=== PATIENT | female | born 1990 | race Caucasian/White ===

== ENCOUNTER 2019-07-10 19:43 | Emergency (ER) | payer OTHER ==
[2019-07-10 20:08] LABS: BILIRUBIN,URINE NEGATIVE (NEGATIVE); GLUCOSE, URINE (UA) NEGATIVE (NEGATIVE); KETONES,URINE (UA) NEGATIVE (NEGATIVE); LEUKOCYTE ESTERASE, URINE NEGATIVE (NEGATIVE); NITRITE,URINE NEGATIVE (NEGATIVE); OCCULT BLOOD,URINE NEGATIVE (NEGATIVE); PROTEIN,URINE NEGATIVE (NEGATIVE); UROBILINOGEN,URINE 0.2 (NORMAL) E.U./dL (NORMAL)
[2019-07-10 20:11] LABS: CLARITY,URINE CLEAR (CLEAR); HCG UR QUAL NEGATIVE
--- NOTE | 2019-07-10 20:34 | ED Physician Documentation ---
PD HPI NVD - Stated complaint Stated Complaint: DIARRHEA/NAUSEA/ITCHING - Chief complaint Chief Complaint: Abd Pain - History obtained from History obtained from: Patient - History of Present Illness Timing - onset: How many days ago (1-2) Timing - duration: Days (2) Timing - details: Gradual onset Associated symptoms: Abdominal pain (intermittent cramping). No: Fever, Chest pain Contributing factors: Other (she had helped a neighbor who had a dirty house. Patient and a few others were in a "cleaning libertarian" and patient says there was animal feces and she thought some human feces (from couple of kids about 3 years old with messy diapers that had stained outside of their diapers) on carpet and floors in places. Patient had gloves on while cleaning but says she had tendency to wipe back of hand on face or hair. Then got feeling N/V the following day. Not feeling well. Is concerned about bacterial cause of symptoms. She is not aware of others from the group being sick.). No: Sick contact, Bad food, Travel Similar symptoms before: Has not had sx before (has IBS but is usually contstipated with cramps with that. Has Zofran at home due to her IBS and was not having improvement from that med.) Recently seen: Not recently seen Review of Systems Constitutional: reports: Chills, Myalgias, Fatigue. denies: Fever Nose: denies: Rhinorrhea / runny nose, Congestion Throat: denies: Sore throat Cardiac: denies: Chest pain / pressure Respiratory: denies: Dyspnea, Cough GI: reports: Nausea, Vomiting, Diarrhea. denies: Abdominal Swelling, Hematemesis, Bloody / black stool : denies: Dysuria, Frequency Neurologic: denies: Near syncope, Syncope, Altered mental status PD PAST MEDICAL HISTORY - Past Medical History Cardiovascular: None Respiratory: None Neuro: None Endocrine/Autoimmune: None GI: Other (IBS with nausea and constipation and cramps at times. ) - Present Medications Home Medications: Ambulatory Orders Medication Instructions Recorded Confirmed Famotidine 20 mg PO DAILY #10 tablet 07/10/19 Prochlorperazine [Compazine] 5 mg PO Q6H PRN #10 tablet 07/10/19 Sulfamethox/Trimeth 800/160 1 each PO BID #6 tablet 07/10/19 [Bactrim Ds 800/160] - Allergies Allergies/Adverse Reactions: Allergies Allergy/AdvReac Type Severity Reaction Status Date / Time No Known Drug Allergies Allergy Verified 07/10/19 19:50 PD ED PE NORMAL - Vitals Vital signs reviewed: Yes - General General: Alert and oriented X 3, No acute distress, Well developed/nourished - HEENT HEENT: Moist mucous membranes, Pharynx benign - Neck Neck: Supple, no meningeal sign, No adenopathy - Cardiac Cardiac: RRR, No murmur - Respiratory Respiratory: Clear bilaterally - Abdomen Abdomen: Normal bowel sounds, Soft, Non distended, No organomegaly, Other (mild tender epigastric without guarding. Lower abd not tenders. ) - Derm Derm: Normal color, Warm and dry Results - Vitals Vitals: Vital Signs - 24 hr 07/10/19 07/10/19 19:47 21:45 Temperature 37 C Heart Rate 89 61 Respiratory 16 18 Rate Blood Pressure 138/99 H 121/96 H O2 Saturation 98 100 Oxygen O2 Source Room air - Labs Labs: Laboratory Tests 07/10/19 07/10/19 07/10/19 20:04 21:12 21:12 WBC 9.9 RBC 5.09 Hgb 15.3 Hct 44.9 MCV 88.2 MCH 30.1 MCHC 34.1 RDW 12.9 Plt Count 222 MPV 10.2 Neut # (Auto) 5.6 Lymph # (Auto) 3.5 [place] # (Auto) 0.6 Eos # (Auto) 0.1 Baso # (Auto) 0.0 Absolute Nucleated RBC 0.00 Nucleated RBC % 0.0 Sodium 142 Potassium 3.9 Chloride 103 Carbon Dioxide 28 Anion Gap 11.0 BUN 16 Creatinine 1.1 H Estimated GFR (MDRD) 60 L Glucose 93 Calcium 9.2 Total Bilirubin 0.6 AST 15 ALT 16 Alkaline Phosphatase 61 Total Protein 7.4 Albumin 4.7 Globulin 2.7 Albumin/Globulin Ratio 1.7 Lipase 44 Urine Color YELLOW Urine Clarity CLEAR Urine pH 6.0 Ur Specific [place] 1.020 Urine Protein NEGATIVE Urine Glucose (UA) NEGATIVE Urine Ketones NEGATIVE Urine Occult Blood NEGATIVE Urine Nitrite NEGATIVE Urine Bilirubin NEGATIVE Urine Urobilinogen 0.2 (NORMAL) Ur Leukocyte Esterase NEGATIVE Ur Microscopic Review NOT INDICATED Urine Culture Comments NOT INDICATED Urine HCG, Qual NEGATIVE PD MEDICAL DECISION MAKING - ED course Complexity details: re-evaluated patient (feeling better with IV fluids and meds. ), considered differential (seems likely to be viral GE but she is concerned that was exposed to feces (wore gloves while cleaning but she believes she had wiped back of hand on face/mouth couple of times). Consider possible bacterial GE. No respiratory symptoms. ), d/w patient Departure - Departure Disposition: 01 Home, Self Care Clinical Impression: Nausea vomiting and diarrhea, Gastroenteritis Condition: Stable Record reviewed to determine appropriate education?: Yes Instructions: ED Diet Vomiting Diarrhea Follow-Up: MICHELLE HERNÁNDEZ MD [Primary Care Provider] - Prescriptions: Famotidine 20 mg PO DAILY #10 tablet Prochlorperazine [Compazine] 5 mg PO Q6H PRN #10 tablet PRN Reason: Nausea / Vomiting Sulfamethox/Trimeth 800/160 [Bactrim Ds 800/160] 1 each PO BID #6 tablet Comments: Use Compazine if needed for nausea every 6 hours as needed. Famotidine acid reducing medicine daily for 1 to 1-1/2 weeks. Tylenol or ibuprofen as needed for pains. Given the possibility of some bacterial contamination, we can give Bactrim antibiotic twice daily for 3 days. Recheck if not improved well over the next couple of days and return sooner if worsening. Forms: Activity restrictions Discharge Date/Time: 07/10/19 22:45
[2019-07-10] MEDS ORDERED: SULFAMETH/TRIMETH DS 800/160 MG TABLET PO STA (20:56)
[2019-07-10] MEDS ORDERED: ONDANSETRON ODT 4 MG TABLET TL STA (20:56)
[2019-07-10] MEDS ORDERED: FAMOTIDINE 20 MG TABLET PO STA (20:56)
[2019-07-10] MEDS ORDERED: ACETAMINOPHEN 325 MG TABLET PO STA (20:56)
[2019-07-10 21:17] LABS: BASOPHILS % (AUTO) 0.4 %; EOSINOPHILS # (AUTO) 0.1 10^3/uL (0.0-0.7); EOSINOPHILS % (AUTO) 1.4 %; HGB - HEMOGLOBIN 15.3 g/dL (12.0-16.0); LYMPHOCYTES # (AUTO) 3.5 10^3/uL (1.5-3.5); LYMPHOCYTES % (AUTO) 35.4 %; MEAN CORPUSCULAR HEMOGLOBIN 30.1 pg (27.0-31.0); MEAN CORPUSCULAR HGB CONC 34.1 g/dL (32.0-36.0); MEAN CORPUSCULAR VOLUME 88.2 fL (81.0-99.0); MEAN PLATELET VOLUME 10.2 fL (7.9-10.8); MONOCYTES # (AUTO) 0.6 10^3/uL (0.0-1.0); MONOCYTES % (AUTO) 6.3 %; NEUTROPHILS # (AUTO) 5.6 10^3/uL (1.5-6.6); NEUTROPHILS % (AUTO) 56.2 %; PLT - PLATELET COUNT 222 10^3/uL (130-450); RED BLOOD COUNT 5.09 10^6/uL (4.20-5.40); RED CELL DISTRIBUTION WIDTH 12.9 % (12.0-15.0); WHITE BLOOD COUNT 9.9 x10^3/uL (4.8-10.8)
[2019-07-10 21:30] LABS: ALBUMIN 4.7 g/dL (3.2-5.5); ALBUMIN/GLOBULIN RATIO 1.7 (1.0-2.2); BILIRUBIN,TOTAL 0.6 mg/dL (0.2-1.0); CALCIUM 9.2 mg/dL (8.5-10.3); CREATININE 1.1 mg/dL (0.4-1.0); TOTAL PROTEIN 7.4 g/dL (6.7-8.2)
[2019-07-10 21:46] VITALS: BP 121/96
[2019-07-10] MEDS ORDERED: PROCHLORPERAZINE 5 MG TABLET PO STA (22:32)
[2019-07-10] MEDS ORDERED: HYDROcod/ACET 5/325 Prepack 4 PO STA (22:32)
[2019-07-10] MEDS ORDERED: ONDANSETRON ODT 4 MG Prepack 2 TL PRN (22:33)
== END 2019-07-10 22:45 | disposition home or self-care (01) ==
LOC: ED 19:43
DX: K52.9 Noninfective gastroenteritis and colitis, unspecified (principal)
CPT/HCPCS: 36415; 80053; 81003; 81025; 83690; 85025; 99283; 99284; A9270; Q0162; 81001; 87086

== ENCOUNTER 2019-07-30 23:23 | Emergency (ER) | payer OTHER ==
--- NOTE | 2019-07-31 01:01 | ED Physician Documentation ---
PD HPI HEADACHE - Stated complaint Stated Complaint: MIGRAINE - Chief complaint Chief Complaint: Neuro - History obtained from History obtained from: Patient - History of Present Illness Timing - onset: How many days ago (3) Timing - details: Gradual onset, Waxing and waning Pain level now: 8 Worst headache ever?: No: Worst headache ever? Location: Global Quality: Throbbing Associated symptoms: Nausea. No: Fever, Stiff neck, Vomiting, Weakness, Numb ness, Vision changes Improved by: Dark room Worsened by: Light Similar symptoms before: Diagnosis (migraine) Recently seen: Not recently seen - Additional information Additional information: c/o "bad migraine" (per patient) x 3 days. (+) photophobia. nausea but no vomiting. patient has a neurologist in [place] and she is scheduled to have LP next month for possible NPH Review of Systems Constitutional: denies: Fever Eyes: reports: Photophobia. denies: Loss of vision, Decreased vision Musculoskeletal: denies: Neck pain Neurologic: reports: Headache. denies: Generalized weakness, Focal weakness, Numbness PD PAST MEDICAL HISTORY - Past Medical History Past Medical History: Yes Cardiovascular: None Respiratory: None Neuro: Headaches, Migraines Endocrine/Autoimmune: None GI: Other Psych: Anxiety Other Past Medical History: IBS - Past Surgical History Past Surgical History: Yes General: Cholecystectomy, Appendectomy, Colonoscopy Ortho: Arthroscopic surgery, Other HEENT: Tonsil/Adenoidectomy - Present Medications Home Medications: Ambulatory Orders Medication Instructions Recorded Confirmed Alprazolam [Xanax] 0.5 mg PO DAILY PRN 07/31/19 07/31/19 Dextroamphetamine/Amphetamine 10 mg PO 07/31/19 [Adderall 10 mg Tablet] Engality IM 07/31/19 Leuprolide [Lupron] IM 07/31/19 Ondansetron Odt [Zofran] 4 mg TL Q6H PRN #10 tablet 07/31/19 Oxycodone HCl/Acetaminophen 1 - 2 each PO Q6H PRN #14 tablet 07/31/19 [Percocet 5-325 mg Tablet] - Allergies Allergies/Adverse Reactions: Allergies Allergy/AdvReac Type Severity Reaction Status Date / Time No Known Drug Allergies Allergy Verified 07/30/19 23:41 - Social History Does the pt smoke?: No Smoking Status: Never smoker Does the pt drink ETOH?: Yes Does the pt have substance abuse?: No - Immunizations Immunizations are current?: Yes - POLST Patient has POLST: No PD ED PE NORMAL - Vitals Vital signs reviewed: Yes - General General: Alert and oriented X 3, No acute distress, Well developed/nourished - HEENT HEENT: PERRL, EOMI - Neck Neck: Supple, no meningeal sign - Cardiac Cardiac: RRR, No murmur - Respiratory Respiratory: No respiratory distress, Clear bilaterally - Neuro Neuro: Alert and oriented X 3, 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 She seems to recall she had phenergan, benadryl, and "some pain medication"; plan was to give phenergan, benadryl, and toradol and she was agreeable to this, but on further discussion, she describes having received a medication on two occasions (once for headache and another time for GI symptoms) with adverse side effect that sounds like dystonic reaction by her description. Based on this, I decided to not give her phenergan or benadryl. Further discussion of options and plan is zofran and dilaudid. This resulted in resolution of her symptoms Departure - Departure Disposition: 01 Home, Self Care Clinical Impression: Migraine Qualifiers: Migraine type: unspecified Status migrainosus presence: without status migrainosus Intractability: not intractable Qualified Code(s): G43.909 - Migraine, unspecified, not intractable, without status migrainosus Condition: Good Instructions: ED Headache Migraine Follow-Up: MICHELLE HERNÁNDEZ MD [Primary Care Provider] - Prescriptions: Ondansetron Odt [Zofran] 4 mg TL Q6H PRN #10 tablet PRN Reason: Nausea / Vomiting Oxycodone HCl/Acetaminophen [Percocet 5-325 mg Tablet] 1 - 2 each PO Q6H PRN #14 tablet PRN Reason: pain Discharge Date/Time: 07/31/19 02:10
[2019-07-31] MEDS ORDERED: ONDANSETRON ODT 4 MG TABLET TL STA (01:20)
[2019-07-31] MEDS ORDERED: HYDROmorphone 1 MG/ML CARPUJECT IM STA (01:20)
[2019-07-31 01:52] VITALS: BP 125/71
== END 2019-07-31 02:10 | disposition home or self-care (01) ==
LOC: ED 23:23
DX: G43.909 Migraine, unspecified, not intractable, without status migrainosus (principal)
CPT/HCPCS: 96372; 99283; 99284; J1170; Q0162

== ENCOUNTER 2019-11-24 12:50 | Outpatient (CLI) | payer OTHER ==
[2019-11-24 13:32] LABS: BASOPHILS % (AUTO) 0.5 %; EOSINOPHILS # (AUTO) 0.3 10^3/uL (0.0-0.7); HGB - HEMOGLOBIN 14.5 g/dL (12.0-16.0); LYMPHOCYTES % (AUTO) 34.9 %; MEAN CORPUSCULAR HEMOGLOBIN 30.9 pg (27.0-31.0); MEAN CORPUSCULAR HGB CONC 34.2 g/dL (32.0-36.0); MEAN CORPUSCULAR VOLUME 90.2 fL (81.0-99.0); MEAN PLATELET VOLUME 9.9 fL (7.9-10.8); MONOCYTES # (AUTO) 0.6 10^3/uL (0.0-1.0); MONOCYTES % (AUTO) 7.2 %; NEUTROPHILS # (AUTO) 4.5 10^3/uL (1.5-6.6); NEUTROPHILS % (AUTO) 52.9 %; PLT - PLATELET COUNT 209 10^3/uL (130-450); RED CELL DISTRIBUTION WIDTH 12.5 % (12.0-15.0); WHITE BLOOD COUNT 8.5 x10^3/uL (4.8-10.8)
[2019-11-24 13:35] LABS: HCG UR QUAL NEGATIVE
== END 2019-11-24 12:51 | disposition home or self-care (01) ==
LOC: LAB 12:50
PROVIDERS: ATTEND Obstetrics & Gynecology
DX: R10.2 Pelvic and perineal pain (principal); G89.29 Other chronic pain
CPT/HCPCS: 36415; 81025; 85025; 86850; 86900; 86901

== ENCOUNTER 2019-11-26 06:30 | Inpatient (IN) | payer OTHER ==
[~2019-11-26 06:30] MED LIST: CEFAZOLIN SODIUM IN 0.9 % NACL 2 GM/100 ML BAG IV ONE
[2019-11-26 06:47] LABS: HCG UR QUAL NEGATIVE
[2019-11-26] MEDS ORDERED: LACTATED RINGERS 1,000 ML IV ONE ×2 (07:16→11:35)
[2019-11-26] MEDS ORDERED: BUPIVACAINE 0.25% PF 30 ML VIAL ONE (07:17)
[2019-11-26] MEDS ORDERED: VASOPRESSIN 20 UNIT/ML VIAL ONE (07:18)
[2019-11-26] MEDS ORDERED: SCOPOLAMINE PATCH TOP ONE (07:19)
[2019-11-26] MEDS ORDERED: SEVOFLURANE 250 ML LIQUID INH ONE (07:44)
[2019-11-26] MEDS ORDERED: HYDROmorphone 1 MG/ML CARPUJECT IVP ONE (08:11)
[2019-11-26] MEDS ORDERED: ONDANSETRON 4 MG/2 ML VIAL IVP ONE (08:11)
[2019-11-26] MEDS ORDERED: PROPOFOL 200 MG/20 ML VIAL IVP ONE (08:11)
[2019-11-26] MEDS ORDERED: LIDOCAINE-MPF 2% 5 ML VIAL IM ONE (08:11)
[2019-11-26] MEDS ORDERED: ROCURONIUM 50 MG/5 ML VIAL IVP ONE (08:11)
[2019-11-26] MEDS ORDERED: DEXAMETHASONE 4 MG/ML VIAL IVP ONE (08:11)
[2019-11-26] MEDS ORDERED: fentaNYL 250 MCG/5 ML VIAL IVP ONE (08:11)
[2019-11-26] MEDS ORDERED: BUPIVACAINE 0.25% PF 30 ML VIAL SUBQ ONE ×2 (08:15)
--- NOTE | 2019-11-26 08:18 | ANESTHESIA ---
Pre-Anesthesia VS, & Labs - Diagnosis Endometriosis - Procedure Laparoscopic hysterecotmy Vital Signs: Temp Pulse Resp BP Pulse Ox 36.5 C 92 16 117/90 H 100 11/26/19 06:48 11/26/19 06:48 11/26/19 06:48 11/26/19 06:48 11/26/19 06:48 Height 5 ft 5.75 in Weight (kg) 92 kg Body Mass Index 31.4 - Is Patient ?: No - Lab Results Lab results reviewed: Yes Home Medications and Allergies Home Medications: Ambulatory Orders Galcanezumab-Gnlm [Emgality] 120 mg SQ 11/20/19 Venlafaxine [Effexor] 37.5 mg PO 11/20/19 Alprazolam [Xanax] 0.5 mg PO DAILY PRN 07/31/19 Dextroamphetamine/Amphetamine [Adderall 10 mg Tablet] 10 mg PO 07/31/19 Galcanezumab-Gnlm [Emgality] 120 mg SQ 11/20/19 Venlafaxine [Effexor] 37.5 mg PO 11/20/19 Allergies/Adverse Reactions: Allergies Allergy/AdvReac Type Severity Reaction Status Date / Time No Known Drug Allergies Allergy Verified 11/20/19 15:22 Anes History & Medical History - Anesthetic History Anesthesia Complications: reports: Post-Operative Nausea/Vomiting Family history of Anesthesia Complications: Denies Family history of Malignant Hyperthermia: Denies - Medical History Cardiovascular: reports: None Pulmonary: reports: Sleep apnea Gastrointestinal: reports: Chronic constipation Urinary: reports: Other Neuro: reports: Headaches, Migraines Musculoskeletal: reports: Rheumatoid arthritis Endocrine/Autoimmune: reports: None Skin: reports: None Smoking Status: Never smoker - Surgical History General: Cholecystectomy, Appendectomy, Colonoscopy Eyes Ears Nose Throat (EENT): Rhinoplasty, Tonsil/Adenoidectomy Gynecologic: Other Orthopedic: Arthroscopic surgery Exam General: Alert, Oriented x3, Cooperative Dental: WNL Mouth Openin Fingerbreadth Neck Mobility: Normal Mallampati classification: II Thyromental Distance: 4-6 cm Respiratory: Lungs clear, Normal breath sounds Cardiovascular: Regular rate Mental/Cognitive Status: Alert/Oriented X3 Plan Anesthesia Type: General Consent for Procedure(s) Verified and Reviewed: Yes Code Status: Attempt Resuscitation ASA classification: 2-Mild systemic disease Is this case an emergency?: No
[2019-11-26] MEDS ORDERED: ONDANSETRON 4 MG/2 ML VIAL IVP PRN (11:16)
[2019-11-26] MEDS ORDERED: ONDANSETRON 4 MG/2 ML VIAL ONE (11:21)
--- NOTE | 2019-11-26 11:32 | OPERATIVE REPORT ---
Operative Report - General Admit Date: 11/26/19 Procedure Date: 11/26/19 Planned Procedure: total laparoscopic hysterectomy, bilateral salpingectomy, cystoscopy Pre-Op Diagnosis: chronic pelvic pain, known endometriosis Procedure Performed: same as above Post Op Diagnosis: same as above - Procedure Note Primary Surgeon: Kate Llanes Secondary Surgeon: Dario Encinas Anesthesia Provider: Jack Daily Anesthesia Technique: General ET tube Pathology: uterus with cervix and bilateral fallopian tubes IV Fluids (mL): 900 Estimated Blood Loss (mL): 200 Urine Output (mL): 275 Indications: chronic pelvic pain, known endometriosis, desires surgical management Findings: Boggy small anteverted uterus, highly vascularized broad ligament. Normal bilateral fallopian tubes, removed. Normal bilateral ovaries, simple cyst on left ovary. Cystoscopy with intact mucosa and brisk bilateral ureteral jets. Complications: none - Other Other Information/Narrative: After informed consent was obtained, the patient was taken to the operating room, where general anesthesia was administered without difficulty. Exam under anesthesia performed, revealing a small anteverted uterus and no mass. The patient was prepped and draped in normal sterile fashion in the dorsal lithotomy position. Surgical time out was performed. A speculum was placed in the vagina and the anterior cervix was grasped with a single tooth tenaculum. The uterus sounded to 8 cm. Hanks dilators were used to dilate the cervix to 15 Persian. The Anesthesiology Tech uterine manipulator 3.0 cm colpotomy ring was placed up to the fundus and the tip balloon was inflated with 10 ml of air. The colpotomy cup was advanced around the cervix and locked into place. Kapoor catheter was placed into the bladder, draining clear yellow urine. Attention was directed to the abdomen. After confirming a gastric tube was placed and the bed was flat, 0.25% marcaine was injected at the umbilicus and a 5mm port was inserted through a horizontal skin incision under direct visualization with the laparoscope. The abdomen was partially insufflated with <5mmHg initial insufflation pressure which was increased to achieve complete pneumoperitoneum at 15 mmHg. A survey of the abdominal cavity revealed no bowel injury under the entry site, normal liver edge. The uterus was noted to be very boggy with a highly vascularized broad ligament. Normal fallopian tubes were seen. The bilateral ovaries were normal with a small simple cyst on the left ovary. The ureter was identified and noted to vermiculate on each side. Two lateral 5 mm ports were then placed under direct visualization/ The left fallopian tube was grasped at the fimbria and elevated; the Ligasure energy device was used to separate the tube from the mesosalpinx to the level of the cornua, were it was transected. The tube was then placed removed through the port. The same procedure was repeated on the right. The right cornua was gently grasped and elevated; the Ligasure energy device was used to divide the round ligament. The anterior leaf of the broad ligament was dissected down and carried anteriorly over the lower uterine segment along the vesicouterine peritoneum to create a bladder flap. The utero-ovarian vessel was then isolated, cauterized and transected. This procedure was repeated on the left. The left uterine artery was then skeletonized and cauterized with the Ligasure. The bladder flap was developed with judicious use of blunt dissection and cautery. The right uterine artery was then skeletonized, coagulated and cut with the Harmonic. Several straight bites along the cervix were taken with the Ligasure on each side to allow the pedicles and ureters to fall away laterally. The colpotomy ring was easily identified and isolated circumferentially. The monopolar L hook was used to create a colpotomy circumferentially along the top edge of the colpotomy ring. The manipulator was removed along with the uterus. An Auvard weighted speculum was placed in the vagina and a vaginal retractor was placed anteriorly. The cuff was grasped with Allis clamps. Bxuzdd-ne-cuyim sutures were placed in a horizontal fashion along the cuff. The vaginal cuff was irrigated and no bleeding was noted. Attention was returned to the abdomen, where some oozing was noted along the cuff; this was cauterized with the L-hook. Pressure was reduced to 8 mm Hg and no further oozing was noted. The abdomen was decompressed. Attention was turned to the cystoscopy. The kapoor catheter was removed and the 70 degree cystoscope set up and white balanced. Fluids were run through and the cystoscope was gently advanced through the urethra into the bladder. Bilateral ureteral orifices were identified and brisk ureteral jets were visualized bilaterally. Survey of the bladder mucosa revealed no evidence of perforation or stitch from the surgery. The bladder was drained and the cystoscope was removed. 4-0 monocryl single interrupted sutures were placed in each port site. Gauze and a tegaderm was placed over each port site. Vaginal vault was cleared of all instruments. Lap, instrument, and needle counts were correct x 2. Pt was awakened from anesthesia and transferred to PACU in stable condition.
[2019-11-26] MEDS: HYDROmorphone 0.5 MG/0.5 ML SYRINGE IVP PRN ×4 (11:43→20:44)
[2019-11-26] MEDS: HYDROmorphone 1 MG/ML CARPUJECT ONE ×2 (11:50→11:57)
[2019-11-26] MEDS ORDERED: KETOROLAC 15 MG/ML VIAL ONE (11:52)
[2019-11-26] MEDS: ACETAMINOPHEN 500 MG TABLET PO SCH ×2 (12:56→18:17)
[2019-11-26] MEDS: LACTATED RINGERS 1,000 ML IV SCH ×2 (12:56→18:12)
[2019-11-26] MEDS: KETOROLAC 30 MG/ML VIAL IVP SCH ×2 (12:58→18:18)
--- NOTE | 2019-11-26 12:58 | PHARMACY PROGRESS NOTE ---
- Best Possible Medication History Admit Date and Time: 11/26/19 0630 Processed by: Pharmacy Medication History completed: Yes Patient Interview: Completed Secondary Source(s): Physician records, Pharmacy records, Insurance records As the person ultimately responsible for medication therapy, providers are able to order a medication from an existing home medication list in [facility] via the "Reconcile Routine" prior to Confirmation of that medication by office support specialist. Such practice is discouraged except when the physician, in their clinical judgment, deems that a medical need exists for a medication without regard to previous use.
[2019-11-26] MEDS: DOCUSATE SODIUM 100 MG CAPSULE PO SCH (20:39)
[2019-11-27] MEDS: ACETAMINOPHEN 500 MG TABLET PO SCH ×2 (00:19→06:06)
[2019-11-27] MEDS: oxyCODONE 5 MG TABLET PO PRN ×3 (00:19→04:56)
[2019-11-27] MEDS: KETOROLAC 30 MG/ML VIAL IVP SCH ×2 (00:19→06:07)
[2019-11-27 05:50] LABS: BASOPHILS % (AUTO) 0.2 %; EOSINOPHILS # (AUTO) 0.3 10^3/uL (0.0-0.7); EOSINOPHILS % (AUTO) 2.3 %; HGB - HEMOGLOBIN 11.9 g/dL (12.0-16.0); LYMPHOCYTES % (AUTO) 14.8 %; MEAN CORPUSCULAR HEMOGLOBIN 29.5 pg (27.0-31.0); MEAN CORPUSCULAR HGB CONC 33.1 g/dL (32.0-36.0); MEAN CORPUSCULAR VOLUME 89.1 fL (81.0-99.0); MONOCYTES # (AUTO) 0.9 10^3/uL (0.0-1.0); NEUTROPHILS # (AUTO) 10.1 10^3/uL (1.5-6.6); NEUTROPHILS % (AUTO) 75.4 %; PLT - PLATELET COUNT 176 10^3/uL (130-450); RED BLOOD COUNT 4.03 10^6/uL (4.20-5.40); RED CELL DISTRIBUTION WIDTH 12.6 % (12.0-15.0); WHITE BLOOD COUNT 13.4 x10^3/uL (4.8-10.8)
--- NOTE | 2019-11-27 07:09 | PROVIDER PROGRESS NOTE ---
Subjective - Prog Note Date Prog Note Date: 11/27/19 Prog Note Time: 07:07 - Subjective Pt reports feeling: Improved Subjective: Doing very well. Reports pain was controlled with oral medications overnight, no further nausea. Tolerated dinner yesterday evening. Ambulated carlisle without difficulty. Dudley catheter removed this AM and patient has already voided. Denies vaginal bleeding or discharge. No other acute concerns. Objective - Vital Signs/Intake & Output Vital Signs: Vital Signs x48h Temp Pulse Resp BP Pulse Ox 11/27/19 04:31 98.1 F 62 20 103/49 L 99 11/27/19 00:10 98.1 F 63 20 108/59 L 99 Intake & Output: Intake & Output 11/24/19 11/25/19 11/26/19 11/27/19 23:59 23:59 23:59 23:59 Intake Total 2486.667 1200 Output Total 2475 1230 Balance 11.667 -30 - Objective General Appearance: positive: No acute distress Abdomen: positive: No distention (soft, appropriate anahi-incisional tenderness. Gauze and tegaderm over each port site, no peeling or strikethrough) Skin: positive: Color nml Extremities: positive: Non-tender Neurologic/Psychiatric: positive: Oriented x3 - Lab Results Fish Bones: 11/27/19 05:34 Other Labs: Lab Results x24hrs 11/27/19 Range/Units 05:34 WBC 13.4 H (4.8-10.8) x10^3/uL RBC 4.03 L (4.20-5.40) 10^6/uL Hgb 11.9 L (12.0-16.0) g/dL Hct 35.9 L (37.0-47.0) % MCV 89.1 (81.0-99.0) fL MCH 29.5 (27.0-31.0) pg MCHC 33.1 (32.0-36.0) g/dL RDW 12.6 (12.0-15.0) % Plt Count 176 (130-450) 10^3/uL MPV 10.0 (7.9-10.8) fL Neut # (Auto) 10.1 H (1.5-6.6) 10^3/uL Lymph # (Auto) 2.0 (1.5-3.5) 10^3/uL [place] # (Auto) 0.9 (0.0-1.0) 10^3/uL Eos # (Auto) 0.3 (0.0-0.7) 10^3/uL Baso # (Auto) 0.0 (0.0-0.1) 10^3/uL Absolute Nucleated RBC 0.00 x10^3/uL Nucleated RBC % 0.0 /100WBC Assessment/Plan - Problem List (1) Postoperative state Impression: 29 yo POD#1 s/p TLH/BS/cysto. VS wnl, exam benign, UOP excellent overnight. Meeting all criteria for discharge and desires to go home this AM. -Continue pain control with tylenol, motrin and roxicodone -Dispo. Home today
--- NOTE | 2019-11-27 07:14 | DISCHARGE SUMMARY ---
Discharge Summary Admit Date: 11/26/19 Discharge Date: 11/27/19 Discharging Provider: Kate Llanes Code Status: Attempt Resuscitation Condition at Discharge: Good Discharge Disposition: 01 Home, Self Care - DIAGNOSES Admission Diagnoses: chronic pelvic pain, endometriosis Discharge Diagnoses with Status of Each Condition: same as above, suspected adenomyosis - HPI History of Present Illness: 29 yo woman with long history of chronic pelvic pain, admitted for planned surgery. - CONSULTS | PROCEDURES Procedures: total laparoscopic hysterectomy, bilateral salpingectomy, cystoscopy - HOSPITAL COURSE Hospital Course: Admitted to planned surgery, underwent TLH/BS/cysto, uncomplicated procedure. Pt remained afebrile throughout her stay. On POD#1, kapoor catheter removed and pt voided spontaneously. At time of discharge, patient was ambulating, voiding, tolerating regular diet and pain was well controlled. She was discharged home with return precautions and close interval follow up. - ALLERGIES Allergies/Adverse Reactions: Allergies Allergy/AdvReac Type Severity Reaction Status Date / Time No Known Drug Allergies Allergy Verified 11/20/19 15:22 - MEDICATIONS Home Medications: Ambulatory Orders Medication Instructions Recorded Confirmed ALPRAZolam [Alprazolam] 0.5 mg PO PRN PRN 11/26/19 11/26/19 Dextroamphetamine/Amphetamine 10 mg PO DAILY PRN 11/26/19 11/26/19 [Adderall Xr 10 mg Capsule] Galcanezumab-Gnlm [Emgality Pen] 120 mg SQ ONCE 11/26/19 11/26/19 Medroxyprogesterone Acetate 10 mg PO DAILY 11/26/19 11/26/19 Venlafaxine ER [Effexor ER] 37.5 mg PO DAILY 11/26/19 11/26/19 Venlafaxine HCl [Venlafaxine HCl 150 mg PO DAILY 11/26/19 11/26/19 ER] - PHYSICAL EXAM AT DISCHARGE General Appearance: positive: No acute distress (see progress note for full exam) - LABS Result Diagrams: 11/27/19 05:34 - FOLLOW UP Follow Up: Follow up as scheduled with Dr. Llanes at [facility]. You may replace your dressings with bandaids 48 hours postoperatively. You can shower, let soap and water run over your abdomen and pat dry, do not scrub. Do not drive for at least 2 weeks after your surgery. You should never drive if you are using prescription pain medicine and you should not drive until you feel you could react quickly in traffic. After surgery expect to have both good days and bad days as you recover. The first few days after surgery most women are sore so plan to stay at home and have someone nearby to help out. As you begin to recover gradually increase yo ur activity. For the first 4 weeks after surgery please do not: "work out", do house work, or lift objects heavier than 10 lbs (approximately a gallon of milk). Please do not have intercourse or place anything in the vagina for 6 weeks after surgery. You may shower but do not take baths or swim. Use a stool softener for 2-4 weeks so that you do not need to strain for bowel movements. [id number] may be added for constipation. When to call the clinic [phone], or come to the Emergency Department: Bleeding heavier than a period, wound redness or drainage, vomiting, severe pain, fever to 100.4 or higher, inability or difficulty emptying your bladder or any other unusual symptoms. - TIME SPENT Time Spent in Discharge (Minutes): 30
[2019-11-27] MEDS: DOCUSATE SODIUM 100 MG CAPSULE PO SCH (08:06)
[2019-11-27 10:08] VITALS: BP 105/48
== END 2019-11-27 11:16 | disposition home or self-care (01) | DRG 743 ==
LOC: MS2 06:30
PROVIDERS: ADMIT Obstetrics & Gynecology; ATTEND Obstetrics & Gynecology
PROC: 0UT74ZZ Resection of Bilateral Fallopian Tubes, Percutaneous Endoscopic Approach (ICD-10-PCS; 2019-11-26)
PROC: 0UT94ZZ Resection of Uterus, Percutaneous Endoscopic Approach (ICD-10-PCS; principal; 2019-11-26 07:30)
DX: N80.0 Endometriosis of uterus (principal); R10.2 Pelvic and perineal pain; N83.292 Other ovarian cyst, left side; F41.9 Anxiety disorder, unspecified; F90.9 Attention-deficit hyperactivity disorder, unspecified type; K59.00 Constipation, unspecified; G43.909 Migraine, unspecified, not intractable, without status migrainosus
CPT/HCPCS: 36415; 81025; 85025

== ENCOUNTER 2020-04-06 15:22 | Emergency (ER) | payer OTHER ==
[2020-04-06 16:18] LABS: BASOPHILS % (AUTO) 0.4 %; EOSINOPHILS # (AUTO) 0.1 10^3/uL (0.0-0.7); EOSINOPHILS % (AUTO) 1.1 %; HGB - HEMOGLOBIN 13.3 g/dL (12.0-16.0); LYMPHOCYTES # (AUTO) 2.3 10^3/uL (1.5-3.5); LYMPHOCYTES % (AUTO) 23.3 %; MEAN CORPUSCULAR HEMOGLOBIN 30.2 pg (27.0-31.0); MEAN CORPUSCULAR HGB CONC 32.5 g/dL (32.0-36.0); MEAN CORPUSCULAR VOLUME 92.7 fL (81.0-99.0); MEAN PLATELET VOLUME 9.5 fL (7.9-10.8); MONOCYTES # (AUTO) 0.6 10^3/uL (0.0-1.0); MONOCYTES % (AUTO) 5.8 %; NEUTROPHILS # (AUTO) 6.7 10^3/uL (1.5-6.6); PLT - PLATELET COUNT 227 10^3/uL (130-450); RED BLOOD COUNT 4.41 10^6/uL (4.20-5.40); RED CELL DISTRIBUTION WIDTH 13.1 % (12.0-15.0); WHITE BLOOD COUNT 9.7 x10^3/uL (4.8-10.8)
[2020-04-06 16:33] LABS: ALBUMIN 4.2 g/dL (3.2-5.5); ALBUMIN/GLOBULIN RATIO 1.5 (1.0-2.2); BILIRUBIN,TOTAL 0.9 mg/dL (0.2-1.0); CALCIUM 9.1 mg/dL (8.5-10.3); CREATININE 0.9 mg/dL (0.4-1.0)
[2020-04-06 17:13] LABS: BILIRUBIN,URINE NEGATIVE (NEGATIVE); GLUCOSE, URINE (UA) NEGATIVE (NEGATIVE); KETONES,URINE (UA) NEGATIVE (NEGATIVE); LEUKOCYTE ESTERASE, URINE NEGATIVE (NEGATIVE); NITRITE,URINE NEGATIVE (NEGATIVE); OCCULT BLOOD,URINE NEGATIVE (NEGATIVE); PROTEIN,URINE NEGATIVE (NEGATIVE); UROBILINOGEN,URINE 0.2 (NORMAL) E.U./dL (NORMAL)
[2020-04-06 17:16] LABS: CLARITY,URINE CLEAR (CLEAR)
[2020-04-06] MEDS ORDERED: KETOROLAC 60 MG/2 ML VIAL IM STA (17:26)
--- NOTE | 2020-04-06 17:27 | ED Physician Documentation ---
PD HPI ABD PAIN - Stated complaint Stated Complaint: FEMALE - Chief complaint Chief Complaint: Abd Pain - History obtained from History obtained from: Patient - History of Present Illness Timing - onset: Today Timing - duration: Days Timing - details: Gradual onset Pain level max: 8 Pain level now: 8 Quality: Aching, Pain Location: All over / everywhere Improved by: Other (nothing) Worsened by: Other (nothing) Associated symptoms: No: Fever, Nausea, Vomiting, Hematemesis, Diarrhea, Constipation, Melena, Hematochezia, Dysuria, Hematuria Similar symptoms before: Diagnosis Recently seen: Not recently seen - Additional information Additional information: Patient is a 29-year-old female presents to the emergency department with left pelvic pain, started this morning at approximately 730, gradually worsened and has been persistent since that time. She has not taken anything for the pain at home. Nothing makes it better or worse. Does have a history of ovarian cyst. Denies any possibility of . Had a partial hysterectomy in November. Review of Systems Constitutional: denies: Fever, Chills Ears: denies: Ear pain Nose: denies: Rhinorrhea / runny nose, Congestion Throat: denies: Sore throat Cardiac: denies: Chest pain / pressure Respiratory: denies: Cough GI: denies: Nausea, Vomiting, Diarrhea Skin: denies: Rash Musculoskeletal: denies: Neck pain, Back pain Neurologic: denies: Focal weakness, Numbness, Headache PD PAST MEDICAL HISTORY - Past Medical History Cardiovascular: None Respiratory: Sleep apnea Neuro: Headaches, Migraines Endocrine/Autoimmune: None GI: Chronic constipation : Other HEENT: None Psych: Anxiety, ADD/ADHD Musculoskeletal: Rheumatoid arthritis Derm: None - Past Surgical History Past Surgical History: Yes General: Cholecystectomy, Appendectomy, Colonoscopy 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, Other HEENT: Rhinoplasty, Tonsil/Adenoidectomy - Present Medications Home Medications: Ambulatory Orders Medication Instructions Recorded Confirmed ALPRAZolam [Alprazolam] 0.5 mg PO PRN PRN 11/26/19 11/26/19 Dextroamphetamine/Amphetamine 10 mg PO DAILY PRN 11/26/19 11/26/19 [Adderall Xr 10 mg Capsule] Galcanezumab-Gnlm [Emgality Pen] 120 mg SQ ONCE 11/26/19 11/26/19 Medroxyprogesterone Acetate 10 mg PO DAILY 11/26/19 11/26/19 Venlafaxine ER [Effexor ER] 37.5 mg PO DAILY 11/26/19 11/26/19 Venlafaxine HCl [Venlafaxine HCl 150 mg PO DAILY 11/26/19 11/26/19 ER] HYDROcod/ACETAM 5/325 [[place] 5/325] 1 - 2 ea PO Q6H PRN #7 tablet 04/06/20 - Allergies Allergies/Adverse Reactions: Allergies Allergy/AdvReac Type Severity Reaction Status Date / Time No Known Drug Allergies Allergy Verified 04/06/20 15:28 - Social History Does the pt smoke?: No Smoking Status: Never smoker Does the pt drink ETOH?: Yes Does the pt have substance abuse?: No - Immunizations Immunizations are current?: Yes - POLST Patient has POLST: No PD ED PE NORMAL - Vitals Vital signs reviewed: Yes - General General: Alert and oriented X 3, No acute distress - HEENT HEENT: Moist mucous membranes - Neck Neck: Supple, no meningeal sign - Cardiac Cardiac: RRR - Respiratory Respiratory: No respiratory distress, Clear bilaterally - Abdomen Abdomen: Soft, Non distended, Other (tender to palpation left pelvic, no peritoneal signs) - Back Back: No CVA TTP, No spinal TTP - Derm Derm: Warm and dry - Extremities Extremities: No edema - Neuro Neuro: Alert and oriented X 3 Results - Vitals Vitals: Vital Signs - 24 hr 04/06/20 04/06/20 04/06/20 15:28 17:05 19:06 Temperature 36.5 C Heart Rate 80 83 78 Respiratory 16 16 Rate Blood Pressure 129/85 H 131/91 H 127/77 O2 Saturation 100 100 04/06/20 19:40 Temperature 36.9 C Heart Rate 97 Respiratory 16 Rate Blood Pressure 128/87 H O2 Saturation 100 Oxygen O2 Source Room air - Labs Labs: Laboratory Tests 04/06/20 04/06/20 04/06/20 16:07 16:07 16:55 WBC 9.7 RBC 4.41 Hgb 13.3 Hct 40.9 MCV 92.7 MCH 30.2 MCHC 32.5 RDW 13.1 Plt Count 227 MPV 9.5 Neut # (Auto) 6.7 H Lymph # (Auto) 2.3 [place] # (Auto) 0.6 Eos # (Auto) 0.1 Baso # (Auto) 0.0 Absolute Nucleated RBC 0.00 Nucleated RBC % 0.0 Sodium 140 Potassium 4.1 Chloride 106 Carbon Dioxide 24 Anion Gap 10.0 BUN 15 Creatinine 0.9 Estimated GFR (MDRD) 75 L Glucose 101 H Calcium 9.1 Total Bilirubin 0.9 AST 14 ALT 16 Alkaline Phosphatase 61 Total Protein 7.0 Albumin 4.2 Globulin 2.8 Albumin/Globulin Ratio 1.5 Lipase 28 Urine Color LT. YELLOW Urine Clarity CLEAR Urine pH 6.0 Ur Specific [place] <=1.005 Urine Protein NEGATIVE Urine Glucose (UA) NEGATIVE Urine Ketones NEGATIVE Urine Occult Blood NEGATIVE Urine Nitrite NEGATIVE Urine Bilirubin NEGATIVE Urine Urobilinogen 0.2 (NORMAL) Ur Leukocyte Esterase NEGATIVE Ur Microscopic Review NOT INDICATED Urine Culture Comments NOT INDICATED - Rads (name of study) pelvic US Radiology: Prelim report reviewed, EMP read contemporaneously, See rad report (Remote hysterectomy. Otherwise unremarkable pelvic ultrasound with no evidence of ovarian torsion.) PD MEDICAL DECISION MAKING - ED course Complexity details: reviewed results, re-evaluated patient, considered differential, d/w patient ED course: Unclear etiology of the patient symptoms. No significant lab abnormalities, ultrasound abnormalities. Pain well controlled in the emergency department. No evidence of bowel injury. No evidence of diverticulitis, peritonitis. Discussed with the patient we will trial her on pain medications for a few days and see how she progresses. She does have trace free fluid adjacent to the left adnexa, possible that she had an ovarian cyst that ruptured. Patient counseled regarding signs and symptoms for which I believe and urgent re-evaluation would be necessary. Patient with good understanding of and agreement to plan and is comfortable going home at this time This document was made in part using voice recognition software. While efforts are made to proofread this document, sound alike and grammatical errors may occur. Departure - Departure Disposition: 01 Home, Self Care Clinical Impression: Abdominal pain Qualifiers: Abdominal location: left lower quadrant Qualified Code(s): R10.32 - Left lower quadrant pain Condition: Good Instructions: ED Abdominal Pain Unkn Cause, ED Pelvic Pain UKO Follow-Up: Nivia Dumont MD [Primary Care Provider] - Prescriptions: HYDROcod/ACETAM 5/325 [[place] 5/325] 1 - 2 ea PO Q6H PRN #7 tablet PRN Reason: Pain Comments: The cause of your symptoms is unclear today. Follow-up with your doctor for further care. Your laboratory testing does not show any acute abnormalities, nor does your ultrasound. This could be due to adhesions from your surgery. Try gently massaging the area over the next 24 hours to see if this helps, a heating pad will often help as well. Do not drink alcohol or drive while on narcotic pain medicine. Note that many narcotic pain relievers also contain tylenol/acetaminophen. Please ensure that your total dose of acetaminophen from all sources does not exceed 3 grams (3000mg) per day. You may constipated on this medication, take a stool softener such as "Colace" twice a day while you are on it. Also recommend a ioaf-[id number] laxative such as senna or MiraLAX any day that you do not have a bowel movement. If you received narcotic pain medication in the emergency department, do not drive or operate machinery for the next 24 hours. Discharge Date/Time: 04/06/20 19:45
--- NOTE | 2020-04-06 19:14 | Ultrasound Report ---
PROCEDURE: Pelvic w/Transvag+Doppler Comp INDICATIONS: pelvic pain, L TECHNIQUE: Real-time scanning was performed of the pelvic organs, with image documentation. Additional endovagi nal scanning was necessary due to incomplete visualization of the adnexal and endometrial structures by transabdominal scanning. COMPARISON: None. FINDINGS: Transabdominal scanning: Limited scanning through the kidneys shows no hydronephrosis. No pathologi c free abdominal or pelvic fluid. Endovaginal scanning: Uterus: Uterus is surgically absent. Ovaries: Right ovary measures 5.4 x 1.8 x 2.0 cm. Left ovary measures 3.0 x 1.3 x 1.8 cm. There is b ilateral intraovarian flow by duplex ultrasound. Trace free fluid is present adjacent to the left adnexa. IMPRESSION: Remote hysterectomy. Otherwise unremarkable pelvic ultrasound with no evidence of ovarian torsion. Reviewed by: Azael Dillon MD on 04/06/2020 7:13 PM PDT Approved by: Azael Dillon MD on 04/06/2020 7:13 PM PDT Station ID: [id number]
[2020-04-06] MEDS ORDERED: ACETAMINOPHEN 325 MG TABLET PO STA (19:33)
[2020-04-06 19:52] VITALS: BP 128/87
== END 2020-04-06 19:45 | disposition home or self-care (01) ==
LOC: ED 15:22
DX: R10.32 Left lower quadrant pain (principal); Z90.710 Acquired absence of both cervix and uterus
CPT/HCPCS: 36415; 76830; 76856; 80053; 81003; 83690; 85025; 93975; 96372; 99284; A9270; 81001; 87086

== ENCOUNTER 2020-05-11 17:43 | Emergency (ER) | payer OTHER ==
[2020-05-11 18:17] LABS: BILIRUBIN,URINE NEGATIVE (NEGATIVE); GLUCOSE, URINE (UA) NEGATIVE (NEGATIVE); KETONES,URINE (UA) NEGATIVE (NEGATIVE); LEUKOCYTE ESTERASE, URINE NEGATIVE (NEGATIVE); NITRITE,URINE NEGATIVE (NEGATIVE); OCCULT BLOOD,URINE NEGATIVE (NEGATIVE); PH,URINE 5.5 PH (5.0-7.5); PROTEIN,URINE NEGATIVE (NEGATIVE); UROBILINOGEN,URINE 0.2 (NORMAL) E.U./dL (NORMAL)
[2020-05-11 18:19] LABS: CLARITY,URINE CLEAR (CLEAR); HCG UR QUAL NEGATIVE
[2020-05-11 18:37] LABS: BASOPHILS % (AUTO) 0.4 %; EOSINOPHILS # (AUTO) 0.2 10^3/uL (0.0-0.7); EOSINOPHILS % (AUTO) 1.6 %; HGB - HEMOGLOBIN 14.3 g/dL (12.0-16.0); LYMPHOCYTES # (AUTO) 2.4 10^3/uL (1.5-3.5); LYMPHOCYTES % (AUTO) 25.7 %; MEAN CORPUSCULAR HGB CONC 34.2 g/dL (32.0-36.0); MEAN CORPUSCULAR VOLUME 90.7 fL (81.0-99.0); MEAN PLATELET VOLUME 9.9 fL (7.9-10.8); MONOCYTES # (AUTO) 0.7 10^3/uL (0.0-1.0); MONOCYTES % (AUTO) 7.3 %; NEUTROPHILS % (AUTO) 64.6 %; PLT - PLATELET COUNT 220 10^3/uL (130-450); RED BLOOD COUNT 4.61 10^6/uL (4.20-5.40); RED CELL DISTRIBUTION WIDTH 12.6 % (12.0-15.0); WHITE BLOOD COUNT 9.4 x10^3/uL (4.8-10.8)
[2020-05-11 18:50] LABS: ALBUMIN 4.3 g/dL (3.2-5.5); ALBUMIN/GLOBULIN RATIO 1.6 (1.0-2.2); BILIRUBIN,TOTAL 0.5 mg/dL (0.2-1.0); CREATININE 0.8 mg/dL (0.4-1.0)
[2020-05-11] MEDS ORDERED: metroNIDAZOLE 250 MG TABLET PO STA (18:59)
[2020-05-11] MEDS ORDERED: KETOROLAC 30 MG/ML VIAL IVP STA (18:59)
--- NOTE | 2020-05-11 19:12 | ED Physician Documentation ---
History of Present Illness - Stated complaint Stated Complaint: FEMALE /BACK PX - Chief complaint Chief Complaint: Abd Pain - History obtained from History obtained from: Patient - History of Present Illness Pain level max: 5 Pain level now: 4 - Additonal information Additional information: 29-year-old female presents to the emergency department multiple complaints. The first is vaginal discharge and burning for the past several days to weeks. She states that she took Diflucan from her doctor without relief. She does have some burning with urination and some low back pain as well. No change in sexual partners. Patient also states that she has had chest pain for the past 3 days. Constant, described as tightness. Nonradiating. Nothing makes it better or worse. No fever, cough, chills. Review of Systems Ten Systems: 10 systems reviewed and negative Constitutional: denies: Fever, Chills Ears: denies: Ear pain Nose: denies: Rhinorrhea / runny nose, Congestion Throat: denies: Sore throat Cardiac: denies: Palpitations Respiratory: denies: Dyspnea, Cough, Hemoptysis, Wheezing GI: reports: Constipation. denies: Vomiting, Diarrhea, Hematemesis : reports: Dysuria, Frequency, Discharge (white, thick). 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, Other HEENT: Rhinoplasty, Tonsil/Adenoidectomy - Present Medications Home Medications: Ambulatory Orders Medication Instructions Recorded Confirmed Dextroamphetamine/Amphetamine 10 mg PO DAILY PRN 11/26/19 11/26/19 [Adderall Xr 10 mg Capsule] Elagolix Sodium [Orilissa] 150 mg PO DAILY 05/11/20 05/11/20 busPIRone [Buspar] 10 mg PO DAILY 05/11/20 05/11/20 metroNIDAZOLE [Flagyl] 500 mg PO BID #14 tablet 05/11/20 - Allergies Allergies/Adverse Reactions: Allergies Allergy/AdvReac Type Severity Reaction Status Date / Time No Known Drug Allergies Allergy Verified 05/11/20 17:51 - Social History Does the pt smoke?: No Smoking Status: Never smoker Does the pt drink ETOH?: Yes Does the pt have substance abuse?: No - Immunizations Immunizations are current?: Yes - POLST Patient has POLST: No PD ED PE NORMAL - Vitals Vital signs reviewed: Yes - General General: Alert and oriented X 3, No acute distress, Well developed/nourished - HEENT HEENT: Moist mucous membranes - Neck Neck: Supple, no meningeal sign - Cardiac Cardiac: RRR, Strong equal pulses - Respiratory Respiratory: No respiratory distress, Clear bilaterally - Abdomen Abdomen: Soft, Non tender, Non distended - Female Female : [employer] 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), Other (thin white vaginal discharge, otherwise normal exam.) - Back Back: No CVA TTP, No spinal TTP - Derm Derm: Warm and dry - Extremities Extremities: No edema - Neuro Neuro: Alert and oriented X 3 - Psych Psych: Normal mood, Normal affect Results - Vitals Vitals: Vital Signs - 24 hr 05/11/20 05/11/20 17:52 19:42 Temperature 36.6 C 36.8 C Heart Rate 88 78 Respiratory 16 22 Rate Blood Pressure 105/90 H 103/69 O2 Saturation 100 100 Oxygen O2 Source Room air - EKG (time done) 1822 Rate: Rate (enter#) (68) Rhythm: NSR [place]: Normal Intervals: Normal DC QRS: Normal Ischemia: Normal ST segments - Labs Labs: Laboratory Tests 05/11/20 05/11/20 05/11/20 18:01 18:31 18:31 WBC 9.4 RBC 4.61 Hgb 14.3 Hct 41.8 MCV 90.7 MCH 31.0 MCHC 34.2 RDW 12.6 Plt Count 220 MPV 9.9 Neut # (Auto) 6.0 Lymph # (Auto) 2.4 [place] # (Auto) 0.7 Eos # (Auto) 0.2 Baso # (Auto) 0.0 Absolute Nucleated RBC 0.00 Nucleated RBC % 0.0 Sodium 140 Potassium 3.7 Chloride 108 Carbon Dioxide 25 Anion Gap 7.0 BUN 14 Creatinine 0.8 Estimated GFR (MDRD) 85 L Glucose 93 Calcium 9.0 Total Bilirubin 0.5 AST 15 ALT 16 Alkaline Phosphatase 56 Troponin I High Sens Total Protein 7.0 Albumin 4.3 Globulin 2.7 Albumin/Globulin Ratio 1.6 Lipase 33 Urine Color YELLOW Urine Clarity CLEAR Urine pH 5.5 Ur Specific [place] 1.025 Urine Protein NEGATIVE Urine Glucose (UA) NEGATIVE Urine Ketones NEGATIVE Urine Occult Blood NEGATIVE Urine Nitrite NEGATIVE Urine Bilirubin NEGATIVE Urine Urobilinogen 0.2 (NORMAL) Ur Leukocyte Esterase NEGATIVE Ur Microscopic Review NOT INDICATED Urine Culture Comments NOT INDICATED Urine HCG, Qual NEGATIVE C. glabrata (PCR) C. krusei (PCR) Tara species DNA T. vaginalis (PCR) Bact Vaginosis (PCR) 05/11/20 05/11/20 18:31 18:50 WBC RBC Hgb Hct MCV MCH MCHC RDW Plt Count MPV Neut # (Auto) Lymph # (Auto) [place] # (Auto) Eos # (Auto) Baso # (Auto) Absolute Nucleated RBC Nucleated RBC % Sodium Potassium Chloride Carbon Dioxide Anion Gap BUN Creatinine Estimated GFR (MDRD) Glucose Calcium Total Bilirubin AST ALT Alkaline Phosphatase Troponin I High Sens < 2.3 L Total Protein Albumin Globulin Albumin/Globulin Ratio Lipase Urine Color Urine Clarity Urine pH Ur Specific [place] Urine Protein Urine Glucose (UA) Urine Ketones Urine Occult Blood Urine Nitrite Urine Bilirubin Urine Urobilinogen Ur Leukocyte Esterase Ur Microscopic Review Urine Culture Comments Urine HCG, Qual C. glabrata (PCR) NEGATIVE C. krusei (PCR) NEGATIVE [place]ara species DNA NEGATIVE T. vaginalis (PCR) NEGATIVE Bact Vaginosis (PCR) NEGATIVE - Rads (name of study) cxr Radiology: Prelim report reviewed, EMP read contemporaneously, See rad report (no acute disease) PD MEDICAL DECISION MAKING - ED course Complexity details: reviewed results, re-evaluated patient, considered differential, d/w patient ED course: Patient's physical exam is concerning for bacterial vaginitis. We will treat with metronidazole. Her bacterial vaginitis panel and STD panel are pending, she will be called with any positive results. No acute findings on EKG or blood work for the chest pain. Chest pain seemed to resolve in the emergency department. No evidence of PE. Patient counseled regarding signs and symptoms for which I believe and urgent re-evaluation would be necessary. Patient with good understanding of and agreement to plan and is comfortable going home at this time This document was made in part using voice recognition software. While efforts are made to proofread this document, sound alike and grammatical errors may occur. Departure - Departure Disposition: 01 Home, Self Care Clinical Impression: Bacterial vaginitis Chest pain Qualifiers: Chest pain type: unspecified Qualified Code(s): R07.9 - Chest pain, unspecified Condition: Good Instructions: ED Vaginosis Bacterial Follow-Up: Nivia Dumont MD [Primary Care Provider] - Within 1 week Prescriptions: metroNIDAZOLE [Flagyl] 500 mg PO BID #14 tablet Comments: Take the Flagyl until gone. Return if you worsen. If your test results are positive for something other than bacterial vaginitis, we will call you. Return if you worsen. Do not drink alcohol with the Flagyl. Your heart tests are normal today as well. Discharge Date/Time: 05/11/20 19:47
--- NOTE | 2020-05-11 19:21 | XRAY Report ---
PROCEDURE: Chest 1 View X-Ray INDICATIONS: Chest Pain TECHNIQUE: One view of the chest was acquired. COMPARISON: None FINDINGS: Surgical changes and devices: None. Lungs and pleura: No pleural effusions or pneumothorax. Lungs are clear. Mediastinum: Mediastinal contours appear normal. Heart size is normal. Bones and chest wall: No suspicious bony lesions. Overlying soft tissues appear unremarkable. IMPRESSION: No acute cardiopulmonary abnormality Reviewed by: Abdirahman Yeboah on 05/11/2020 7:19 PM [facility] Approved by: Adbirahman Yeboah on 05/11/2020 7:19 PM [facility] Station ID: [id number]
[2020-05-11 19:43] VITALS: BP 103/69
[2020-05-11 20:44] LABS: CANDIDA GROUP DNA NEGATIVE (NEGATIVE); CANDIDA KRUSEI DNA NEGATIVE (NEGATIVE); TRICHOMONAS VAGINALIS DNA NEGATIVE (NEGATIVE)
[2020-05-11 21:41] LABS: TRICHOMONAS VAGINALIS DNA NEGATIVE (NEGATIVE)
== END 2020-05-11 19:47 | disposition home or self-care (01) ==
LOC: ED 17:43
DX: N76.0 Acute vaginitis (principal); B96.89 Other specified bacterial agents as the cause of diseases classified elsewhere; R07.89 Other chest pain
CPT/HCPCS: 36415; 71045; 80053; 81003; 81025; 83690; 84484; 85025; 87481; 87491; 87591; 87661; 87801; 93005; 96374; 99284; A9270; 81001; 87086

== ENCOUNTER 2020-06-03 10:14 | Outpatient (CLI) | payer OTHER ==
--- NOTE | 2020-06-03 11:11 | SLEEP CARE CONSULTATION ---
Information from patient questionnaire entered by Trish Moore. I have reviewed and concur with the information entered by Trish Moore. This document represents the service I personally performed and the decisions made by me, Moriah Goldsmith ARNP. History of Present Illness Service Date and Time: 06/03/2020 1014 Reason for Visit: New patient Chief Complaint: reports: Insomnia, Unrefreshed sleep, Snoring, Excessive daytime sleepiness, Observed pauses in breathing, Fatigue, Frequent awakenings at night, Other (grinds her teeth) Date of Onset: 2015 Usual bedtime: depends 11pm - 3am Time it takes to fall asleep: a long time Snores at night: No Observed to quit breathing while asleep: Yes Sleeps alone due to snoring: No Number of times waking at night: 2-5 Reasons for waking at night: reports: Choking, Gasping for air, Bathroom. denies: Snoring Toss, Turn, or Twitch while sleeping: Yes Recalls having dreams: Yes Usually gets out of bed at: 7 - 11 am, depends Feels refreshed in the morning: No Morning headache: Yes Sleepy or fatigued during the day: Yes Ever fallen asleep while driving: No Takes day naps: Yes Dreams during day naps: Yes Prior sleep studies: Yes Year and Where: 2016 - Additional HPI information: I had the pleasure of seeing CHERYL GILBERT today regarding the possibility of her having a sleep disorder. Her current complaints are insomnia, observed pauses in breathing, fatigue and unrefreshed sleep. She has had a prior sleep study done in 01/2017 showed mild obstructive sleep apnea with an AHI of 2 and RDI of 19 per hour. She has not used her CPAP machine since 2017. She states that there was not good follow up by the sleep center and they did not show her how to use the machine. She became frustrated and stopped using her machine. Her has encouraged her to follow up and restart therapy, thus she comes in today. - Parasomnia Symptoms Ever been unable to move upon waking from sleep: No Walks in sleep: No Talks in sleep: No Ever acted out dreams in sleep: No Ever felt weak in the knees when startled or emotional: Yes Bothered by creepy, crawly, restless sensations in legs: Yes Problems with memory or concentration: Yes Subjective Initial [place] Sleepiness Scale score: 16 (in 2020) Past Medical History Past Medical History: reports: Anxiety, Mood disorder (PTSD), GERD, Attention deficit, Other (chronic migraines, IBS). denies: Hypertension, Congestive Heart Failure, Diabetes, Insulin resistance, Arrythmia, Hypothyroidism, Anemia, Depression Social History The patient's occupation is a [employer]. Patient is and lives in [place]. Have you smoked in the past 12 months: No Alcohol use: Yes Alcohol amount and frequency: 3 drinks per week Caffeine use: Yes Caffeine amount and frequency: 2 cups a day Family History Family history of sleep disordered breathing: No (adopted) Allergies and Home Medications Drug allergies reviewed: Yes (NKDA) Home medication list reviewed: Yes Allergy and home medication list: ondansetron, 8 mg prn doxepin 10 mg Adderall Xr 10 mg prn buspirone 10 mg botox injections Review of Systems Weight gain over past 5 years: 50 Cardiovascular: denies: high blood pressure, irregular heart rate or pulse Gastrointestinal: reports: heartburn, nausea, abdominal pain Neurological: reports: headaches. denies: seizure, head trauma Psychiatric: reports: Attention Deficit Hyperactivity, anxiety, mood disorder. denies: depression, claustrophobia Ear/Nose/Throat: reports: nasal congestion, sinus problems (rhinoplasty in past to open up the nasal passages 2017), dry mouth/throat, tonsillectomy, wisdom teeth removed. denies: nose bleeds, injury to nose Endocrine: reports: sluggishness, unexplained weakness Musculoskeletal: reports: joint pain, neck pain, back pain, joint swelling, mus dipesh pain or cramping Immunologic: reports: allergies to food or environment (possibly might have environmental allergies) Physical Exam Blood Pressure: 118/74 Cuff size: long Heart Rate: 77 O2 Saturation: 99 Height: 5 ft 6 in Weight: 207 lb Body Mass Index: 33.4 BMI Classification: Obese Neck circumference: 14.8 (inches) Nostrils: patent to airflow Turbinates: swollen Septum: midline Mouth and throat: narrow oropharynx Uvula visualization: 25% Mallampati Class III Tongue: normal in size Tonsils: absent bilaterally Chin and jaw: normal size and position Neck: normal w/o lymphadenopathy or thyromegaly Heart: regular rate and rhythm Lungs: clear bilaterally Impression and Plan 1. Suspected Obstructive Sleep Apnea-Hypopnea Syndrome, as previously diagnosed in 2017 and as suggested by a history of irregular snoring, observed cessation of breath while asleep, gasping or choking in sleep, frequent awakening during the night, unrefreshed sleep, and excessive daytime sleepiness. Patient has not been using her CPAP machine since 2017 and we will need to get another study to verify diagnosis and severity before restarting treatment. Patient voiced understanding. I reviewed with patient that a narrow oropharynx and obesity are common predisposing factors for obstructive sleep apnea-hypopnea syndrome. I recommend proceeding to polysomnography to confirm the diagnosis and to assess severity. If the patient has significant sleep disordered breathing, a manual CPAP titration study will also be performed to find the optimal treatment pressure. I informed the patient of what the sleep studies involve and after some discussion, obtained agreement to proceed. The pathophysiology of obstructive sleep apnea-hypopnea syndrome was discussed with the patient and health risks of cardiovascular and cerebrovascular disease if not treated. AAS brochure for obstructive sleep apnea-hypopnea syndrome given and reviewed. Risks of drowsy driving discussed in detail and patient advised to avoid long distance driving and to picker/puller at the first sign of drowsiness. Patient agreed to plan. * Schedule polysomnography +- manual CPAP titration study. * Avoid long distance driving or driving when feeling sleepy. * Avoid alcohol, sedative and muscle relaxant around bedtime. * Attempt to lose weight. * Review instructions provided by trained office staff on how to prepare for the sleep study. * Return for follow-up after sleep study completed. Counseling Topics: Weight loss health impact Visit Type: In Office Time Spent with Patient (minutes): 30 Provider Statement: I spent 100% of the Face to Face Visit with the patient with greater than 50% spent counseling the patient and coordination of care.
[2020-06-03 11:12] VITALS: BP 118/74
== END 2020-06-03 10:15 | disposition home or self-care (01) ==
LOC: SC 10:14
PROVIDERS: ATTEND Nurse Practitioner Family
DX: G47.33 Obstructive sleep apnea (adult) (pediatric) (principal); E66.9 Obesity, unspecified; Z68.33 Body mass index [BMI] 33.0-33.9, adult
CPT/HCPCS: 99203; 99212

== ENCOUNTER 2020-06-09 13:00 | Outpatient (CLI) | payer OTHER | END 2020-06-09 13:01 | disposition home or self-care (01) | LOC: SC 13:00 | PROVIDERS: ATTEND Nurse Practitioner Family | DX: G47.33 Obstructive sleep apnea (adult) (pediatric) (principal); R09.02 Hypoxemia; E66.9 Obesity, unspecified; Z68.33 Body mass index [BMI] 33.0-33.9, adult | CPT/HCPCS: 95806 ==

== ENCOUNTER 2020-06-16 10:58 | Day surgery (SDC) | payer OTHER ==
[2020-06-16] MEDS ORDERED: ONDANSETRON 4 MG/2 ML VIAL ONE (11:17)
[2020-06-16] MEDS ORDERED: KETOROLAC 30 MG/ML VIAL ONE (11:17)
[2020-06-16] MEDS ORDERED: DEXAMETHASONE 4 MG/ML VIAL ONE (11:17)
[2020-06-16] MEDS ORDERED: PROPOFOL 200 MG/20 ML VIAL IVP ONE (11:17)
[2020-06-16] MEDS ORDERED: LIDOCAINE-MPF 2% 5 ML VIAL ONE (11:17)
[2020-06-16] MEDS ORDERED: ROCURONIUM 50 MG/5 ML VIAL ONE (11:18)
[2020-06-16] MEDS ORDERED: ACETAMINOPHEN 1,000 MG/100 ML 100 ML IV ONE (11:28)
[2020-06-16] MEDS ORDERED: LACTATED RINGERS 1,000 ML IV ONE ×3 (11:39→14:18)
--- NOTE | 2020-06-16 11:55 | ANESTHESIA ---
Pre-Anesthesia VS, & Labs - Diagnosis pelvic pain - Procedure bilateral oophorectomy, laparoscopic Height: 5 ft 5.94 in Weight (kg): 93.8 kg Body Mass Index: 33.4 BMI Classification: Obese - NPO >8 hours - Is Patient ?: No Home Medications and Allergies Home Medications: Ambulatory Orders ALPRAZolam [Alprazolam] 0.5 mg PO PRN 06/09/20 Doxepin [SINEquan] 10 mg PO QPM 06/09/20 Dextroamphetamine/Amphetamine [Adderall Xr 10 mg Capsule] 10 mg PO DAILY PRN 11/26/19 busPIRone [Buspar] 10 mg PO DAILY 05/11/20 ALPRAZolam [Alprazolam] 0.5 mg PO PRN 06/09/20 Doxepin [SINEquan] 10 mg PO QPM 06/09/20 Allergies/Adverse Reactions: Allergies Allergy/AdvReac Type Severity Reaction Status Date / Time No Known Drug Allergies Allergy Verified 06/09/20 15:13 Anes History & Medical History - Anesthetic History Anesthesia Complications: reports: Post-Operative Nausea/Vomiting - Medical History Cardiovascular: reports: None Pulmonary: reports: Sleep apnea Gastrointestinal: reports: Chronic constipation Urinary: reports: None Neuro: reports: Headaches, Migraines Musculoskeletal: reports: None Endocrine/Autoimmune: reports: None Skin: reports: None Smoking Status: Never smoker - Surgical History General: Cholecystectomy, Appendectomy, Colonoscopy Eyes Ears Nose Throat (EENT): Rhinoplasty, Tonsil/Adenoidectomy Gynecologic: 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, Other Orthopedic: Arthroscopic surgery Exam General: Alert Dental: WNL Mouth Opening: Greater than 4 Fingerbreadths Mallampati classification: I Respiratory: Lungs clear Cardiovascular: Regular rate Mental/Cognitive Status: Alert/Oriented X3 Plan Anesthesia Type: General Consent for Procedure(s) Verified and Reviewed: Yes Code Status: Attempt Resuscitation ASA classification: 2-Mild systemic disease Is this case an emergency?: No
[2020-06-16] MEDS ORDERED: NALOXONE 0.4 MG/ML VIAL IVP PRN (11:58)
[2020-06-16] MEDS ORDERED: ATROPINE ABBOJECT 1 MG/10 ML SYRINGE IVP PRN (11:58)
[2020-06-16] MEDS ORDERED: HYDROmorphone 0.5 MG/0.5 ML SYRINGE IVP PRN (11:58)
[2020-06-16] MEDS ORDERED: ONDANSETRON 4 MG/2 ML VIAL IVP PRN ×2 (11:58→14:11)
[2020-06-16] MEDS ORDERED: fentaNYL 100 MCG/2 ML VIAL IVP PRN (11:58)
[2020-06-16] MEDS ORDERED: METOCLOPRAMIDE 10 MG/2 ML VIAL IVP PRN (11:58)
[2020-06-16] MEDS ORDERED: ePHEDrine 50 MG/ML VIAL IVP PRN (11:58)
[2020-06-16] MEDS ORDERED: MORPHINE 2 MG/ML CARPUJECT IVP PRN (11:58)
[2020-06-16] MEDS ORDERED: SCOPOLAMINE PATCH TOP SCH (12:00)
[2020-06-16] MEDS ORDERED: LACTATED RINGERS 1,000 ML IV SCH (12:00)
[2020-06-16] MEDS ORDERED: BUPIVACAINE 0.5%-EPI 1:200000 PF 30 ML VIAL ONE (12:04)
[2020-06-16] MEDS ORDERED: SILVER NITRATE APPLICATOR TOP ONE (12:09)
[2020-06-16] MEDS ORDERED: SCOPOLAMINE PATCH TOP ONE (12:14)
[2020-06-16] MEDS ORDERED: MIDAZOLAM 2 MG/2 ML VIAL ONE (12:16)
[2020-06-16] MEDS ORDERED: fentaNYL 100 MCG/2 ML VIAL ONE (12:16)
--- NOTE | 2020-06-16 12:28 | OPERATIVE REPORT ---
Operative Report - General Procedure Date: 06/16/20 Planned Procedure: Laparoscopic Bilateral Oophorectomy Pre-Op Diagnosis: Chronic Pelvic Pain, Absence of uterus and cervix Procedure Performed: Laparoscopic Bilateral Oophorectomy, Vaginal cuff peritoneal biopsy, Ablation of endometriosis lesions Post Op Diagnosis: Chronic Pelvic Pain, Absence of uterus and cervix, Endometriosis - Procedure Note Primary Surgeon: Robinson Secondary Surgeon: Huang Anesthesia Provider: [facility] Anesthesia Technique: General ET tube Pathology: Right ovary, Left ovary, Vaginal cuff biopsy IV Fluids (mL): 1,000 (Lactated Ringers) Estimated Blood Loss (mL): 5 Urine Output (mL): 200 Indications: 29 year old female post-hysterectomy for chronic pelvic pain and history of biopsy proven endometriosis, with persistence in pelvic pain and failed trial GNRH antagonist, desiring definitive management of pelvic pain with bilateral oophorectomy. The patient was counseled and consented for the procedure. Findings: Exam under anesthesia: Vaginal cuff with palpable fibrotic scarring, no masses. Laparoscopy: Normal liver edge. Absent uterus and fallopian tubes consistent with history of hysterectomy with bilateral salpingectomy. Normal appearing bilateral ovaries. Filmy adhesion of vaginal cuff to rectum, with black/brown lesions along length of cuff but primarily at left edge of cuff. Multiple scattered black/brown lesions on peritoneum throughout pelvis and around bilateral ovaries, consistent with endometriosis lesions. Complications: None - Other Other Information/Narrative: OPERATIVE PROCEDURE: The patient was taken to the operating room where general anesthesia was performed without any complications. The patient was prepared and draped in the usual sterile fashion in the dorsal lithotomy position with yellow fin stirrups. A Dudley catheter was placed to drain the bladder. A sponge stick was placed in the vagina. The speculum was removed from the vagina. Attention was turned to the patient's abdomen where local anesthesia injection was used followed by a 5 mm vertical skin incision made at the inferior portion of the umbilicus. A Veress needle was inserted and initial gas pressure was noted to be 5mm Hg. The abdomen was insufflated with CO2 gas with maximum pressure set to 15mm Hg and the Veress needle was removed. A 5 mm trocar and sleeve were placed into the patient's abdomen under direct visualization without any complications. Survey of the patient's abdomen and pelvis was notable for the above findings. Two additional ports were inserted into the right lower quadrant and left lower quadrant under direct visualization in similar fashion. The adhesion of the vaginal cuff to the rectum was taken down with blunt dissection. The vaginal cuff peritoneal lesion at the left side was tented up using forceps, and cut off using Ligasure device. The remainder of the endometriosis lesions throughout the pelvis was coagulated with the Ligasure device while tenting on the peritoneum. Attention was turned to the right ovary. The right infundibulopelvic ligament was identified, and with care taken to be well away from the right ureter which was identified and visualized to vermiculate, the right infudnibulopelvic ligament was ligated with the Ligasure device. The right ovary was removed. The left ovary was removed in a similar fashion. The umbilical port was exchanged for a 12-mm port. The Endocatch bag was inserted and both ovaries were removed from the abdomen after extending the umbilical incision. The umbilical fascia was closed directly using 0 vicryl suture in locking fashion. The pelvis was irrigated. Final inspection of the abdomen and pelvis revealed excellent hemostasis. All instruments were removed from the abdomen. The abdomen was decompressed and all trocars were removed. The skin incisions were closed with subcuticular 4-0 Monocryl and covered with Dermabond. The sponge stick was removed from the vagina. All instruments were removed from the vagina. All sponge, sharp, and instrument counts were correct x2. The patient was extubated in the room and was taken to the PACU in stable condition.
[2020-06-16] MEDS ORDERED: BUPIVACAINE 0.5%-EPI 1:200000 PF 30 ML VIAL SUBQ ONE ×2 (13:07)
[2020-06-16] MEDS ORDERED: SUGAMMADEX 200 MG/2 ML VIAL IVP ONE (13:45)
[2020-06-16] MEDS ORDERED: diphenhydrAMINE 25 MG CAPSULE PO PRN (14:11)
[2020-06-16] MEDS ORDERED: MORPHINE 10 MG/ML VIAL IVP STA (14:11)
[2020-06-16] MEDS ORDERED: oxyCODONE 5 MG TABLET PO PRN (14:11)
[2020-06-16] MEDS ORDERED: HYDROmorphone 0.5 MG/0.5 ML SYRINGE ONE (14:25)
--- NOTE | 2020-06-16 14:55 | ANESTHESIA POST OP EVALUATION ---
Anesthesia Post Eval - Post Anesthesia Eval Vitals: Last Vital Signs Temp 36.3 C L 06/16/20 14:38 Pulse 89 06/16/20 14:38 Resp 14 06/16/20 14:38 BP 121/60 06/16/20 14:38 Pulse Ox 97 06/16/20 14:38 CV Function Including HR & BP: positive: Stable Pain Control: positive: Satisfactory Nausea & Vomiting: positive: Negative Mental Status: positive: Baseline Respiratory Status: Airway Patent Hydration Status: Satisfactory Anesthesia Complications: positive: None
[2020-06-16] MEDS ORDERED: oxyCODONE 5 MG TABLET ONE (14:57)
[2020-06-16 15:15] VITALS: BP 110/67
== END 2020-06-16 10:59 | disposition home or self-care (01) ==
LOC: SDS 10:58
PROVIDERS: ATTEND Obstetrics & Gynecology
PROC: 0D5W4ZZ Destruction of Peritoneum, Percutaneous Endoscopic Approach (ICD-10-PCS; 2020-06-16)
PROC: 0UT24ZZ Resection of Bilateral Ovaries, Percutaneous Endoscopic Approach (ICD-10-PCS; principal; 2020-06-16 11:45)
DX: R10.2 Pelvic and perineal pain (principal); N80.3 Endometriosis of pelvic peritoneum; Z90.710 Acquired absence of both cervix and uterus; Z90.79 Acquired absence of other genital organ(s); E66.9 Obesity, unspecified; Z68.33 Body mass index [BMI] 33.0-33.9, adult; G47.30 Sleep apnea, unspecified
CPT/HCPCS: 88304; 88305

== ENCOUNTER 2020-06-18 07:51 | Outpatient (CLI) | payer OTHER ==
--- NOTE | 2020-06-18 08:18 | SLEEP CARE CONSULTATION ---
Information from patient questionnaire entered by Trish Moore. I have reviewed and concur with the information entered by Trish Moore. This document represents the service I personally performed and the decisions made by , Moriah Goldsmith ARNP. History of Present Illness Service Date and Time: 06/18/2020 075 Initial [place] Sleepiness Scale score: 16 (in 2020) Current [place] Sleepiness Scale score: 14 Additional HPI information: CHERYL GILBERT returns for follow up and results of the recently performed home sleep study. I explained the pathophysiology behind obstructive sleep apnea. We then spent quite a bit of time discussing different treatment options. For mild obstructive sleep apnea, surgery and oral appliance are alternatives to nasal CPAP therapy but in moderate or severe cases, nasal CPAP is the most effective and reliable treatment. Because apnea is primarily in supine position, then positional management therapy could be effective. Methods discussed such as positioning with pillows, using a T-shirt with tennis balls in the back, and shown commercial products that have a pillow format on back to prevent supine sleep. I reviewed the impact of weight changes on sleep apnea and strongly recommended losing weight. After some discussion, the patient opted to go with the nasal CPAP therapy. Nasal autoCPAP set at [id number] will be ordered with rationale explained. A manual titration study will be ordered if unable to find optimal pressure with office adjustments. I explained how CPAP machine works with sample devices Respironics Dreamstation and ResClariture [id number] and what to expect when using the machine. Using CPAP every night in order to get used to it was emphasized. Patient advised to put CPAP mask on before getting into bed so as not to fall asleep without CPAP. To assist acclimation to CPAP use, it could also be used for a short time during day while reading or watching TV. The patient was instructed to call the CPAP supplier to discuss any mechanical problem that may occur. If the mask given is uncomfortable or is difficult to keep on through the night even with adjustment, contact the CPAP supplier as many will replace with another mask style if notified before 30 days. If snoring or perceives is not getting enough air or too much air from the machine, notify this office. Sleep Study - Results Type of Sleep Study: Home sleep study Prior sleep studies: Yes Year and Where: 2017 - Polysomnography/Home Sleep Study results: Physician Impression: The quality of the study is good. The length of the study is adequate (> 240 minutes). Please also see the tabulated and graphic data. 1. Obstructive Sleep Apnea-Hypopnea (ICD-10 G47.33), mild, with an AHI of 9.7/hr and elizabeth SaO2 of 87%. During the study, the patient had 42 apneas (38 obstructive, 4 central, 0 mixed) and 37 hypopneas. The longest episode lasted 32.0 seconds. The respiratory events occurred almost exclusively during supine sleep (supine AHI was 12.2 and non-supine, 1.99). 2. Hypoxemia (ICD-10 R09.02), minimal, with the lowest oxygen saturation of 87 % and 0.7 minutes with SaO2 under 90%. Baseline oxygen saturation was normal (Average oxygen saturation was 94%). 3. Tachycardia, with maximum recoded heart rate of 130 beats per minute. Allergies and Home Medications Drug allergies reviewed: Yes (NKDA) Home medication list reviewed: Yes (estradiol patches) Review of Systems Review of systems same as previous: No (ovaries removed) Physical Exam Heart Rate: 61 O2 Saturation: 98 Height: 5 ft 6 in Weight: 209 lb Body Mass Index: 33.7 BMI Classification: Obese Impression and Plan 1. Obstructive Sleep Apnea-Hypopnea Syndrome, mild, with lowest oxygen saturation of 87%. Obviously this is the cause of the patients symptoms of unrefreshed sleep, and excessive daytime sleepiness. Positive pressure therapy could benefit her anxiety, mood disorder and GERD. As mentioned above, the patient will be started on nasal autoCPAP therapy with pressure set at 4-15 cmH2 O. A manual titration study will be completed if unable to find optimal treatment pressure with office adjustments. Compliance guidelines also reviewed. A copy of compliance guidelines will be given for reference at check out. Because the apnea is more severe supine, I instructed to avoid sleeping supine using pillow positioning until able to start CPAP use. * Nasal auto CPAP therapy, pressure at 4-15 cm H2O. * Attempt to lose weight. * Avoid alcohol consumption near bedtime. * Avoid supine sleep until using CPAP. * The patient is again cautioned about driving until sleepiness completely resolves. * Return one month after CPAP obtained. I will assess response to therapy and compliance at that time. Counseling Topics: Weight loss health impact Visit Type: In Office Time Spent with Patient (minutes): 17 Provider Statement: I spent 100% of the Face to Face Visit with the patient with greater than 50% spent counseling the patient and coordination of care.
== END 2020-06-18 07:52 | disposition home or self-care (01) ==
LOC: SC 07:51
PROVIDERS: ATTEND Nurse Practitioner Family
DX: G47.33 Obstructive sleep apnea (adult) (pediatric) (principal); R00.0 Tachycardia, unspecified; E66.9 Obesity, unspecified; Z68.33 Body mass index [BMI] 33.0-33.9, adult
CPT/HCPCS: 99212; 99213

== ENCOUNTER 2020-07-30 07:53 | Outpatient (CLI) | payer OTHER ==
--- NOTE | 2020-07-30 08:42 | SLEEP CARE CONSULTATION ---
Information from patient questionnaire entered by Trish Moore. I have reviewed and concur with the information entered by Trish Moore. This document represents the service I personally performed and the decisions made by , Moriah Goldsmith ARNP. History of Present Illness Service Date and Time: 07/30/2020 0753 Previous diagnosis: Mild, Obstructive Sleep Apnea-Hypopnea Syndrome AHI: 9.7 (in 2019) Reason for follow up: first compliance Equipment type: CPAP Equipment obtained from: [employer] (got supplies initially) Mask style: Full face Backup mask available: No (will keep old mask when replaced) Last cushion change: about 1 month Prior sleep studies: Yes Year and Where: 2019 - [facility] Sleep Type of Sleep Study: Home sleep study HPI additional information: CHERYL GILBERT was diagnosed to have mild, AHI 9.7, obstructive sleep apnea- hypopnea syndrome and returned today for CPAP therapy first compliance follow- up. CPAP Compliance Data - Data Reviewed with Patient Average duration of nightly device use: 3 hr 9 min Compliance rate %: 17 Current pressure setting (cmH2O): 4-8 Humidity settin Average residual AHI: 4.0 Subjective Missed days of use due to: reports: mask issues Patient concerns: reports: nasal congestion, other (headache, ears feel like I'm underwater, pressure causing pain and extreme migraine). denies: aerophagia, mask discomfort, air blowing in eyes, mask leak noise, condensation in mask/hose, dry mouth, nose, throat, epistaxis Observed to snore while using device: No Current pressure setting perceived as: comfortable On therapy, patient: reports: other (did have some improvement for the first few days but since having headaches/pressure in ears she is more tired). denies: sleeping better, awakening more refreshed, being more awake and alert during the day, more rested overall Initial [place] Sleepiness Scale score: 16 (in 2020) Current [place] Sleepiness Scale score: 13 Allergies and Home Medications Drug allergies reviewed: Yes (NKDA) Home medication list reviewed: Yes (no changes) Review of Systems Review of systems same as previous: Yes (no changes) Physical Exam Heart Rate: 75 O2 Saturation: 99 Height: 5 ft 6 in Weight: 209 lb Body Mass Index: 33.7 BMI Classification: Obese Impression and Plan 1. Obstructive Sleep Apnea-Hypopnea Syndrome, mild, with poor treatment compliance and fair apnea control. On CPAP therapy, the patient has better sleep quality and is more rested overall. She has been having issues with her ears feeling a lot of pressure/pain and like she is under water as well as pain on the right side of her head. She normally has a history of bad migraine headaches. She has not been able to tolerate using CPAP because of migraines lasting up to 4 days, hard to concentrate with pain and building toward nausea. She has also had some nasal congestion. Nasal congestion can be reduced with increasing the CPAP humidity. I advised patient to increase her humidity setting and that she can try OTC Flonase to see if this will reduce nasal congestion and help reduce pressure in her ears. She was also advised to apply warm moist compresses below both ears to try to reduce any inflammation or congestion in her Eustachian tubes that may be preventing her from equalizing ear pressures. She was also advised to contact her PCP to get a referral to an ENT specialist who may be able to evaluate any other causes of her ear/head symptoms. I advised patient that if she is still unable to tolerate CPAP due to ear pressure and migraines that she can try positional therapy since her last HST on 06/09/20 showed her non-supine AHI at 1.99 and we discussed in depth how to do this. She is to notify this office if she has to stop CPAP and just do positional therapy before following up and I will reduce pressure to 4-7 cmH2O to see if it is more tolerated. She voiced understanding and agreement with this plan of care. Patient's apnea severity and rationale for treatment to reduce apnea, improve sleep quality and reduce cardiovascular and cerebrovascular events was reviewed. I also reviewed the benefit of consistent device use of CPAP for mood disorder, gastric reflux, and anxiety. * Increase humidity to reduce nasal congestion * Change auto CPAP pressure to 4-7 cmH2O * Follow up with PCP for ENT referral * Notify me if snoring with mask or feeling that the pressure is too much or too little * Attempt to lose weight * Call this office if any problems using CPAP * Return for follow up in 1-2 months , or sooner if concerns arise Counseling Topics: Weight loss health impact Visit Type: In Office Time Spent with Patient (minutes): 29 Provider Statement: I spent 100% of the Face to Face Visit with the patient with greater than 50% spent counseling the patient and coordination of care.
== END 2020-07-30 07:54 | disposition home or self-care (01) ==
LOC: SC 07:53
PROVIDERS: ATTEND Nurse Practitioner Family
DX: G47.33 Obstructive sleep apnea (adult) (pediatric) (principal); E66.9 Obesity, unspecified; Z68.33 Body mass index [BMI] 33.0-33.9, adult
CPT/HCPCS: 99212; 99213

== ENCOUNTER 2020-08-28 01:32 | Outpatient (CLI) | payer OTHER | END 2020-08-28 01:33 | disposition critical access hospital (66) | LOC: EMS 01:32 | PROVIDERS: ATTEND Emergency Medicine | DX: S06.9X9A Unspecified intracranial injury with loss of consciousness of unspecified duration, initial encounter (principal); Y04.8XXA Assault by other bodily force, initial encounter | CPT/HCPCS: A0425; A0429 ==

== ENCOUNTER 2020-08-28 01:49 | Emergency (ER) | payer OTHER ==
[2020-08-28 02:20] LABS: BASOPHILS % (AUTO) 0.4 %; EOSINOPHILS # (AUTO) 0.1 10^3/uL (0.0-0.7); EOSINOPHILS % (AUTO) 0.5 %; HCT - HEMATOCRIT 42.9 % (37.0-47.0); HGB - HEMOGLOBIN 14.4 g/dL (12.0-16.0); LYMPHOCYTES # (AUTO) 2.4 10^3/uL (1.5-3.5); LYMPHOCYTES % (AUTO) 21.9 %; MEAN CORPUSCULAR HEMOGLOBIN 30.2 pg (27.0-31.0); MEAN CORPUSCULAR HGB CONC 33.6 g/dL (32.0-36.0); MEAN CORPUSCULAR VOLUME 89.9 fL (81.0-99.0); MEAN PLATELET VOLUME 9.3 fL (7.9-10.8); MONOCYTES # (AUTO) 0.6 10^3/uL (0.0-1.0); MONOCYTES % (AUTO) 5.7 %; NEUTROPHILS # (AUTO) 7.8 10^3/uL (1.5-6.6); PLT - PLATELET COUNT 223 10^3/uL (130-450); RED BLOOD COUNT 4.77 10^6/uL (4.20-5.40); RED CELL DISTRIBUTION WIDTH 12.8 % (12.0-15.0)
[2020-08-28 02:25] LABS: BILIRUBIN,URINE NEGATIVE (NEGATIVE); GLUCOSE, URINE (UA) NEGATIVE (NEGATIVE); KETONES,URINE (UA) NEGATIVE (NEGATIVE); LEUKOCYTE ESTERASE, URINE NEGATIVE (NEGATIVE); NITRITE,URINE NEGATIVE (NEGATIVE); OCCULT BLOOD,URINE NEGATIVE (NEGATIVE); PH,URINE 5.5 PH (5.0-7.5); PROTEIN,URINE NEGATIVE (NEGATIVE); UROBILINOGEN,URINE 0.2 (NORMAL) E.U./dL (NORMAL)
[2020-08-28 02:27] LABS: CLARITY,URINE CLEAR (CLEAR); HCG UR QUAL NEGATIVE
[2020-08-28 02:34] LABS: ALBUMIN 4.5 g/dL (3.2-5.5); ALBUMIN/GLOBULIN RATIO 1.5 (1.0-2.2); BILIRUBIN,TOTAL 0.4 mg/dL (0.2-1.0); CALCIUM 9.7 mg/dL (8.5-10.3); CREATININE 0.9 mg/dL (0.4-1.0); POTASSIUM 3.6 mmol/L (3.5-5.0); TOTAL PROTEIN 7.6 g/dL (6.7-8.2)
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
[2020-08-28] MEDS ORDERED: HYDROmorphone 1 MG/ML CARPUJECT IM STA (04:32)
[2020-08-28] MEDS ORDERED: ONDANSETRON ODT 4 MG TABLET TL STA ×2 (04:32→09:35)
--- NOTE | 2020-08-28 08:18 | CT Report ---
PROCEDURE: HEAD WO INDICATIONS: concussion with LOC TECHNIQUE: Noncontrast 4.5 mm thick angled axial sections acquired from the foramen magnum to the vertex. For r adiation dose reduction, the following was used: automated exposure control, adjustment of mA and/or kV according to patient size. COMPARISON: None. FINDINGS: Image quality: Excellent. CSF spaces: Basal cisterns are patent. No extra-axial fluid collections. Ventricles are normal in size and shape. Brain: No midline shift. No intracranial masses or hemorrhage. Espinal-white matter interface is norm al. Skull and face: Left frontal scalp swelling and hematoma is seen. Calvarium and visualized facial gerard brandy are intact, without suspicious lesions. Sinuses: Visualized sinuses and mastoids are clear. IMPRESSION: 1. No CT evidence of acute intracranial pathology. 2. Left frontal scalp hematoma and swelling. No acute skull fracture. No discrepancies from preliminary reading. Reviewed by: Chris Molina MD on 08/28/2020 8:17 AM [facility] Approved by: Chris Molina MD on 08/28/2020 8:17 AM [facility] Station ID: [id number]
[2020-08-28] MEDS ORDERED: HYDROcod/ACETAM 5/325 MG TABLET PO STA (09:35)
[2020-08-28] MEDS ORDERED: IBUPROFEN 800 MG TABLET PO STA (09:35)
[2020-08-28 09:50] VITALS: BP 133/97
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
== END 2020-08-28 11:15 | disposition home or self-care (01) ==
LOC: EDUNIT# → ED 01:49
DX: T76.11XA Adult physical abuse, suspected, initial encounter (principal); S06.0X1A Concussion with loss of consciousness of 30 minutes or less, initial encounter; S00.10XA Contusion of unspecified eyelid and periocular area, initial encounter; S00.83XA Contusion of other part of head, initial encounter; S00.81XA Abrasion of other part of head, initial encounter; Y04.8XXA Assault by other bodily force, initial encounter; Y07.01 Husband, perpetrator of maltreatment and neglect
CPT/HCPCS: 36415; 70450; 80053; 80320; 81003; 81025; 83690; 85025; 96374; 99284; A9270; J1170; Q0162; 81001; 87086

== ENCOUNTER 2021-01-07 01:33 | Emergency (ER) | payer OTHER ==
[2021-01-07 02:11] LABS: GLUCOSE, URINE (UA) NEGATIVE (NEGATIVE); KETONES,URINE (UA) 15 mg/dL (NEGATIVE); LEUKOCYTE ESTERASE, URINE MODERATE (NEGATIVE); NITRITE,URINE NEGATIVE (NEGATIVE); OCCULT BLOOD,URINE LARGE (NEGATIVE); PH,URINE 5.5 PH (5.0-7.5); PROTEIN,URINE >=300 mg/dL (NEGATIVE); UROBILINOGEN,URINE 1 (NORMAL) E.U./dL (NORMAL)
[2021-01-07 02:12] LABS: CLARITY,URINE CLOUDY (CLEAR)
[2021-01-07 02:18] LABS: BILIRUBIN,URINE NEGATIVE (NEGATIVE); ICTOTEST,URINE NEGATIVE; WBC,URINE >25 /HPF (0-5)
[2021-01-07 02:19] LABS: BACTERIA,URINE Few /HPF (None Seen); SQUAMOUS EPITHELIAL CELL,UR FEW Squamous (<= Few)
--- NOTE | 2021-01-07 03:56 | ED Physician Documentation ---
History of Present Illness - Stated complaint Stated Complaint: FEMALE - Chief complaint Chief Complaint: UTI - History obtained from History obtained from: Patient - Additonal information Additional information: 30-year-old woman with past medical history of pyelonephritis presents with progressive and dysuria over the past few days, gradual in onset, associated with suprapubic pain, worse with urination, also with increased frequency. Patient endorses pain radiating to the bilateral flanks. Denies fever, nausea, diarrhea, hematuria. 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, Other HEENT: Rhinoplasty, Tonsil/Adenoidectomy - Present Medications Home Medications: Ambulatory Orders Medication Instructions Recorded Confirmed Dextroamphetamine/Amphetamine 10 mg PO DAILY PRN 11/26/19 11/26/19 [Adderall Xr 10 mg Capsule] busPIRone [Buspar] 10 mg PO DAILY 05/11/20 05/11/20 ALPRAZolam [Alprazolam] 0.5 mg PO PRN 06/09/20 Doxepin [SINEquan] 10 mg PO QPM 06/09/20 06/16/20 Cefpodoxime Proxetil [Vantin] 100 mg PO Q12H #20 tablet 01/07/21 - Allergies Allergies/Adverse Reactions: Allergies Allergy/AdvReac Type Severity Reaction Status Date / Time No Known Drug Allergies Allergy Verified 01/07/21 01:54 - Social History Does the pt smoke?: No Smoking Status: Never smoker Does the pt drink ETOH?: Yes Does the pt have substance abuse?: No - Immunizations Immunizations are current?: Yes - POLST Patient has POLST: No PD ED PE NORMAL - Vitals Vital signs reviewed: Yes - General General: Alert and oriented X 3, No acute distress, Well developed/nourished - HEENT HEENT: Atraumatic, PERRL, EOMI - Neck Neck: Supple, no meningeal sign - Cardiac Cardiac: RRR - Respiratory Respiratory: No respiratory distress, Clear bilaterally - Abdomen Abdomen: Non tender, Non distended - Back Back: Other (Bilateral CVA tenderness to palpation) - Derm Derm: Normal color, Warm and dry - Extremities Extremities: No deformity, No edema - Neuro Neuro: Alert and oriented X 3 - Psych Psych: Normal mood, Normal affect Results - Vitals Vitals: Vital Signs - 24 hr 01/07/21 01:52 Temperature 36.5 C Heart Rate 52 L Respiratory 16 Rate Blood Pressure 127/92 H O2 Saturation 100 Oxygen O2 Source Room air - Labs Labs: Laboratory Tests 01/07/21 01:56 Urine Color YELLOW Urine Clarity CLOUDY Urine pH 5.5 Ur Specific [place] >=1.030 H Urine Protein >=300 H Urine Glucose (UA) NEGATIVE Urine Ketones 15 H Urine Occult Blood LARGE H Urine Nitrite NEGATIVE Urine Bilirubin NEGATIVE Urine Urobilinogen 1 (NORMAL) Ur Leukocyte Esterase MODERATE H Urine RBC 6-10 H Urine WBC >25 H Ur Squamous Epith Cells FEW Squamous Urine Bacteria Few Ur Microscopic Review INDICATED Urine Culture Comments INDICATED PD MEDICAL DECISION MAKING - ED course ED course: 30-year-old woman presented with UTI with concern for cystitis versus pyelonephritis. Antibiotic prescription provided and return precautions given. She will follow up with her primary doctor. Departure - Departure Disposition: 01 Home, Self Care Clinical Impression: UTI (urinary tract infection) Condition: Good Instructions: ED UTI Cystitis Female Prescriptions: Cefpodoxime Proxetil [Vantin] 100 mg PO Q12H #20 tablet Comments: You were seen in the emergency department for urinary tract infection. Follow- up with your primary doctor and return to the emergency department if you have any new or worsening symptoms or other concerns.
[2021-01-07] MEDS: PHENAZOPYRIDINE 100 MG TABLET PO STA (04:17)
[2021-01-07] MEDS: CEFPODOXIME PROXETIL 100 MG TABLET PO STA (04:17)
[2021-01-07 04:47] VITALS: BP 122/71
== END 2021-01-07 04:46 | disposition home or self-care (01) ==
LOC: ED 01:33
DX: N39.0 Urinary tract infection, site not specified (principal)
CPT/HCPCS: 81001; 87086; 87181; 99283; 99284; A9270; 81003

== ENCOUNTER 2021-01-14 15:30 | Outpatient (CLI) | payer OTHER ==
--- NOTE | 2021-01-14 15:54 | XRAY Report ---
PROCEDURE: Tib/Fib LT INDICATIONS: ABRASION, L LOWER LEG TECHNIQUE: 2 views of the tibia and fibula were acquired. COMPARISON: None FINDINGS: Bones: No fractures or dislocations. No suspicious bony lesions. Soft tissues: No suspicious soft tissue calcifications or masses. IMPRESSION: No acute lower leg fracture or dislocation. No radiopaque foreign body. Reviewed by: Chris Molina MD on 01/14/2021 3:53 PM PDT Approved by: Chris Molina MD on 01/14/2021 3:53 PM PDT Station ID: [id number]
== END 2021-01-14 23:59 | disposition home or self-care (01) ==
LOC: DI.N 15:30
PROVIDERS: ATTEND Nurse Practitioner
DX: S80.812A Abrasion, left lower leg, initial encounter (principal)

== ENCOUNTER 2021-02-15 00:30 | Emergency (ER) | payer OTHER ==
--- NOTE | 2021-02-15 00:47 | ED Physician Documentation ---
PD HPI FEMALE - Stated complaint Stated Complaint: F - Chief complaint Chief Complaint: UTI - History obtained from History obtained from: Patient - History of Present Illness Timing - onset: Yesterday Timing - details: Gradual onset Pain level max: 6 Associated symptoms: Back pain, Dysuria, Hematuria. 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 She was recently T+R from this ED (01/01) for similar c/o and treated for UTI (prescribed vantin). The hematuria did not recur until yesterday but she describes recurrent dysuria and low back pain since her evaluation in this ED; for these latter symptoms she has been prescribed ,and completed, two more courses of antibiotics (unsure of the second antibiotic, but most recent was flagyl). Denies fever, denies vaginal discharge. Review of Systems Constitutional: denies: Fever, Chills, Sweats GI: denies: Abdominal Pain, Nausea, Vomiting : reports: Dysuria, Hematuria, 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. 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, Other HEENT: Rhinoplasty, Tonsil/Adenoidectomy - Present Medications Home Medications: Ambulatory Orders Medication Instructions Recorded Confirmed Dextroamphetamine/Amphetamine 10 mg PO DAILY PRN 11/26/19 11/26/19 [Adderall Xr 10 mg Capsule] busPIRone [Buspar] 10 mg PO DAILY 05/11/20 05/11/20 ALPRAZolam [Alprazolam] 0.5 mg PO PRN 06/09/20 Doxepin [SINEquan] 10 mg PO QPM 06/09/20 06/16/20 Cefpodoxime Proxetil [Vantin] 100 mg PO Q12H #20 tablet 01/07/21 traMADol [Ultram] 50 - 100 mg PO Q6H #14 tablet 02/15/21 - Allergies Allergies/Adverse Reactions: Allergies Allergy/AdvReac Type Severity Reaction Status Date / Time No Known Drug Allergies Allergy Verified 01/07/21 01:54 - Social History Does the pt smoke?: No Smoking Status: Never smoker Does the pt drink ETOH?: Yes Does the pt have substance abuse?: No - Immunizations Immunizations are current?: Yes - POLST Patient has POLST: No PD ED PE NORMAL - Vitals Vital signs reviewed: Yes - General General: Alert and oriented X 3, No acute distress, Well developed/nourished - Cardiac Cardiac: RRR, No murmur - Respiratory Respiratory: No respiratory distress - Abdomen Abdomen: Normal bowel sounds, Soft, Non tender PD ED PE EXPANDED - Back Back: CVA TTP right, CVA TTP left, Other (bilateral CVA tenderness, predominantly right-sided) Results - Vitals Vitals: Oxygen O2 Source Room air - Labs Labs: Laboratory Tests 02/15/21 01:40 Urine Color YELLOW Urine Clarity CLEAR Urine pH 7.0 Ur Specific [place] 1.020 Urine Protein NEGATIVE Urine Glucose (UA) NEGATIVE Urine Ketones NEGATIVE Urine Occult Blood NEGATIVE Urine Nitrite NEGATIVE Urine Bilirubin NEGATIVE Urine Urobilinogen 0.2 (NORMAL) Ur Leukocyte Esterase NEGATIVE Ur Microscopic Review NOT INDICATED Urine Culture Comments NOT INDICATED - Rads (name of study) CT A/P without contrast Radiology: Prelim report reviewed, See rad report PD MEDICAL DECISION MAKING - ED course Complexity details: reviewed old records, reviewed results, re-evaluated patient, considered differential, d/w patient ED course: normal UA and noncontrast CT A/P does not demonstrate etiology of her symptoms nor any concerning findings. She is given pyridium PO, toradol IM while in ED. Results reviewed with patient and she is instructed to follow up with primary care provider, return if worse. May benefit from urology follow up for possible interstitial cystitis Departure - Departure Disposition: 01 Home, Self Care Clinical Impression: Pelvic pain, Dysuria Condition: Good Instructions: ED Dysuria Uncertain Cause Follow-Up: SANDRA FAUSTIN MD [Primary Care Provider] - Prescriptions: traMADol [Ultram] 50 - 100 mg PO Q6H #14 tablet Discharge Date/Time: 02/15/21 04:05
[2021-02-15] MEDS ORDERED: KETOROLAC 60 MG/2 ML VIAL IM STA (01:29)
[2021-02-15 01:44] LABS: BILIRUBIN,URINE NEGATIVE (NEGATIVE); GLUCOSE, URINE (UA) NEGATIVE (NEGATIVE); KETONES,URINE (UA) NEGATIVE (NEGATIVE); LEUKOCYTE ESTERASE, URINE NEGATIVE (NEGATIVE); NITRITE,URINE NEGATIVE (NEGATIVE); OCCULT BLOOD,URINE NEGATIVE (NEGATIVE); PROTEIN,URINE NEGATIVE (NEGATIVE); UROBILINOGEN,URINE 0.2 (NORMAL) E.U./dL (NORMAL)
[2021-02-15 01:45] LABS: CLARITY,URINE CLEAR (CLEAR)
[2021-02-15] MEDS ORDERED: PHENAZOPYRIDINE 100 MG TABLET PO STA (03:50)
[2021-02-15 04:03] VITALS: BP 112/79
--- NOTE | 2021-02-15 10:56 | CT Report ---
PROCEDURE: Abdomen/Pelvis WO INDICATIONS: right flank pain, hematuria TECHNIQUE: Noncontrast 5 mm thick sections acquired from the diaphragms to the symphysis. 5 mm coronal and sagi ttal reformats were then performed. For radiation dose reduction, the following was used: automated exposure control, adjustment of mA and/or kV according to patient size. COMPARISON: None. FINDINGS: Image quality: Excellent. ABDOMEN: Lung bases: Lung bases are clear. Heart size is normal. Solid organs: Liver and spleen are normal in size. Gallbladder is surgically absent. Pancreas is n ormal in contours. No adrenal nodules. Kidneys are normal in size, without hydronephrosis or nephro lithiasis. Peritoneum and bowel: Unenhanced bowel loops demonstrate normal wall thickness and caliber. No free fluid or air. The appendix is not definitely visualized. No inflammatory changes or free fluid in t he right lower abdominal quadrant. Nodes and vessels: No retroperitoneal or mesenteric adenopathy by size criteria. Aorta and inferior vena cava are normal in caliber. Miscellaneous: No ventral hernias. PELVIS: Genitourinary: Bladder wall thickness is normal. Miscellaneous: No inguinal hernias or adenopathy. Bones: No suspicious bony lesions. No vertebral body compression fractures. IMPRESSION: No acute findings. No radiopaque kidney stone or hydronephrosis. Note: No significant discrepancy in the preliminary report. Reviewed by: Sim Chase on 02/15/2021 9:54 AM [facility] Approved by: Sim Chase on 02/15/2021 9:54 AM [facility] Station ID: [id number]
== END 2021-02-15 04:05 | disposition home or self-care (01) ==
LOC: ED 00:30
DX: R10.2 Pelvic and perineal pain (principal); R30.0 Dysuria
CPT/HCPCS: 74176; 81003; 96372; 99283; 99284; A9270; 81001; 87086

== ENCOUNTER 2021-03-27 12:39 | Outpatient (CLI) | payer OTHER | END 2021-03-27 12:40 | disposition home or self-care (01) | LOC: COV 12:39 | PROVIDERS: ATTEND Surgery | DX: Z01.812 Encounter for preprocedural laboratory examination (principal); K42.9 Umbilical hernia without obstruction or gangrene; Z20.822 Contact with and (suspected) exposure to COVID-19 ==

== ENCOUNTER 2021-03-30 08:39 | Day surgery (SDC) | payer OTHER ==
[2021-03-30] MEDS ORDERED: CEFAZOLIN SODIUM IN 0.9 % NACL 2 GM/100 ML BAG IV ONE (08:42)
[2021-03-30] MEDS ORDERED: LACTATED RINGERS 1,000 ML IV ONE (09:17)
[2021-03-30] MEDS ORDERED: LIDOCAINE 2%-EPI 1:100000 20 ML MDV ONE (09:59)
[2021-03-30] MEDS ORDERED: ceFAZolin 1 GM VIAL ONE (09:59)
[2021-03-30] MEDS ORDERED: BUPIVACAINE 0.5% PF 10 ML VIAL ONE (09:59)
[2021-03-30] MEDS ORDERED: ONDANSETRON 4 MG/2 ML VIAL IVP PRN ×2 (10:28→11:34)
[2021-03-30] MEDS ORDERED: MORPHINE 2 MG/ML CARPUJECT IVP PRN (10:28)
[2021-03-30] MEDS ORDERED: ePHEDrine 50 MG/ML VIAL IVP PRN (10:28)
[2021-03-30] MEDS ORDERED: METOCLOPRAMIDE 10 MG/2 ML VIAL IVP PRN (10:28)
[2021-03-30] MEDS ORDERED: HYDROmorphone 0.5 MG/0.5 ML SYRINGE IVP PRN (10:28)
[2021-03-30] MEDS ORDERED: ATROPINE ABBOJECT 1 MG/10 ML SYRINGE IVP PRN (10:28)
[2021-03-30] MEDS ORDERED: fentaNYL 100 MCG/2 ML VIAL IVP PRN (10:28)
[2021-03-30] MEDS ORDERED: NALOXONE 0.4 MG/ML VIAL IVP PRN (10:28)
[2021-03-30] MEDS ORDERED: MIDAZOLAM 2 MG/2 ML VIAL ONE (10:32)
[2021-03-30] MEDS ORDERED: fentaNYL 100 MCG/2 ML VIAL ONE (10:32)
--- NOTE | 2021-03-30 10:32 | ANESTHESIA ---
Pre-Anesthesia VS, & Labs - Diagnosis recurrent umbilical hernia - Procedure Umblical hernia repair Vital Signs: Temp Pulse Resp BP Pulse Ox 36.5 C 52 L 16 116/67 100 03/30/21 09:18 03/30/21 09:18 03/30/21 09:18 03/30/21 09:18 03/30/21 09:18 Height: 5 ft 6 in Weight (kg): 79.8 kg Body Mass Index: 28.3 BMI Classification: Overweight - NPO >8 hours - Is Patient ?: No - Lab Results Lab results reviewed: Yes Home Medications and Allergies Home Medications: Ambulatory Orders Estradiol [Estrace] 0.5 mg PO DAILY 03/23/21 Onabotulinumtoxina [Botox] 150 unit IJ ONCE 03/23/21 Active Medications Atropine Sulfate (Atropine Abboject 1 Mg/10 Ml Syringe) 0.5 mg IVP Q5M PRN PRN Reason: Bradycardia Stop: 03/31/21 10:28 Ephedrine Sulfate (Ephedrine 50 Mg/Ml Vial) 10 mg IVP Q5M PRN PRN Reason: HYPOTENSION Stop: 03/31/21 10:28 Fentanyl (Fentanyl 100 Mcg/2 Ml Vial) 25 - 50 mcg IVP Q5M PRN PRN Reason: BREAKTHROUGH PAIN (2nd Choice) Stop: 03/31/21 10:28 Hydromorphone HCl (Hydromorphone 0.5 Mg/0.5 Ml Syringe) 0.2 - 0.6 mg IVP Q5M PRN PRN Reason: PAIN (First Choice) Stop: 03/31/21 10:28 Lactated Ringer's (Lr) 1,000 mls @ 100 mls/hr IV .Q10H STEPHANIA Stop: 03/30/21 20:59 Metoclopramide HCl (Metoclopramide 10 Mg/2 Ml Vial) 10 mg IVP Q6HR PRN PRN Reason: N/V not relieved by Zofran Morphine Sulfate (Morphine 2 Mg/Ml Carpuject) 2 - 4 mg IVP Q5M PRN PRN Reason: PAIN (3rd Choice) Stop: 03/31/21 10:28 Naloxone HCl (Naloxone 0.4 Mg/Ml Vial) 0.1 mg IVP Q2M PRN PRN Reason: RESP RATE <8 Stop: 03/31/21 10:28 Ondansetron HCl (Ondansetron 4 Mg/2 Ml Vial) 4 mg IVP ONCE PRN PRN Reason: N/V (First Choice) Stop: 03/31/21 10:28 Scopolamine HBr (Scopolamine Patch) 1 patch TOP Q3D STEPHANIA Dextroamphetamine/Amphetamine [Adderall Xr 10 mg Capsule] 20 mg PO DAILY PRN 11/26/19 Estradiol [Estrace] 0.5 mg PO DAILY 03/23/21 Onabotulinumtoxina [Botox] 150 unit IJ ONCE 03/23/21 Allergies/Adverse Reactions: Allergies Allergy/AdvReac Type Severity Reaction Status Date / Time No Known Drug Allergies Allergy Verified 01/07/21 01:54 Anes History & Medical History - Anesthetic History Anesthesia Complications: reports: Post-Operative Nausea/Vomiting Family history of Anesthesia Complications: Denies Family history of Malignant Hyperthermia: Denies - Medical History Cardiovascular: reports: None Pulmonary: reports: Sleep apnea Gastrointestinal: reports: Other Urinary: reports: None Neuro: reports: Headaches, Migraines Musculoskeletal: reports: Chronic back pain Endocrine/Autoimmune: reports: None Skin: reports: Other Smoking Status: Never smoker - Surgical History General: reports: Cholecystectomy, Appendectomy, Colonoscopy Eyes Ears Nose Throat (EENT): reports: Rhinoplasty, Tonsil/Adenoidectomy Gynecologic: reports: 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, Other Orthopedic: reports: Arthroscopic surgery Exam General: Alert, Oriented x3, Cooperative, No acute distress Dental: WNL Mouth Openin Fingerbreadth Neck Mobility: Normal Mallampati classification: I Plan Anesthesia Type: General Consent for Procedure(s) Verified and Reviewed: Yes Code Status: Attempt Resuscitation ASA classification: 1-Healthy patient Is this case an emergency?: No
[2021-03-30] MEDS ORDERED: LIDOCAINE-MPF 2% 5 ML VIAL ONE (10:34)
[2021-03-30] MEDS ORDERED: DEXAMETHASONE 4 MG/ML VIAL ONE (10:34)
[2021-03-30] MEDS ORDERED: PROPOFOL 200 MG/20 ML VIAL IVP ONE (10:34)
[2021-03-30] MEDS ORDERED: KETOROLAC 30 MG/ML VIAL ONE (10:34)
[2021-03-30] MEDS ORDERED: LACTATED RINGERS 1,000 ML IV SCH (11:00)
[2021-03-30] MEDS ORDERED: SCOPOLAMINE PATCH TOP SCH (11:00)
[2021-03-30] MEDS ORDERED: BUPIVACAINE 0.5% PF 10 ML VIAL SUBQ ONE (11:05)
[2021-03-30] MEDS ORDERED: LIDOCAINE 2%-EPI 1:100000 20 ML MDV SUBQ ONE (11:06)
--- NOTE | 2021-03-30 11:30 | OPERATIVE REPORT ---
Operative Report - General Procedure Date: 03/30/21 Planned Procedure: Repair of recurrent umbilical hernia Pre-Op Diagnosis: Recurrent umbilical hernia Procedure Performed: Repair of recurrent umbilical hernia Post Op Diagnosis: Recurrent umbilical hernia - Procedure Note Primary Surgeon: Oleksandr Anesthesia Provider: EDUARDO García Pathology: None Estimated Blood Loss (mL): 5 Indications: Symptomatic recurrent umbilical hernia Findings: 1 cm recurrence with an incarcerated nodule of preperitoneal fat. Visible scar from existing repair. Complications: None apparent - Other Other Information/Narrative: After obtaining informed consent, the patient is brought to the operating room and placed in the supine position on the operating table. Following successful induction of general endotracheal anesthesia, appropriate padding of all bony prominences, and placement of appropriate monitors, the abdomen was prepped and draped in the standard surgical fashion. A timeout was held per scope protocol. All elements of the surgical safety checklist were followed before, during, and after the procedure. Following infiltration with local anesthetic to create a field block, an i ncision was created directly through the umbilicus and over the palpable and visible defect. This was carried through the skin and subcutaneous tissue. The umbilical tissue was then freed from the umbilical remnant for complete exposure to the hernia sack. The defect was noted to be approximately 1.5 cm in greatest dimension. The hernia sac itself was approximately 2 cm. The hernia sac was ca refully dissected free from the overlying skin and underlying fascial tissue as well as the surrounding areolar tissue. The contents of the sac were eased back into the abdominal cavity without opening the peritoneum. The surgically was then inserted into the defect and the anterior abdominal wall palpated internally to be sure there was enough space for mesh placement. We elected to repair the defect with a 6 cm a portion of C-cur mesh. The mesh was dipped in Ancef solution and into the defect. It was straightened and flattened in the preperitoneal space. Placement was checked and adjusted. Once we were satisfied it was ideal, the tails were trimmed and sewn to the fascia anteriorly. The wound was checked for hemostasis and irrigated with Ancef containing solution The umbilicus was reconstructed with interrupted Vicryl suture. The incision was closed in layers with Vicryl and Monocryl suture and Dermabond was applied to the skin. All sponge, needle, and instrument counts were correct at the conclusion of the case. The patient was allowed awaken from anesthesia without difficulty and taken to the postanesthesia care unit in good condition.
[2021-03-30] MEDS ORDERED: ACETAMINOPHEN 325 MG TABLET PO PRN (11:34)
[2021-03-30] MEDS ORDERED: oxyCODONE 5 MG TABLET PO PRN (11:34)
[2021-03-30] MEDS ORDERED: IBUPROFEN 600 MG TABLET PO PRN (11:34)
[2021-03-30] MEDS ORDERED: LACTATED RINGERS 150 ML IV ONE (11:48)
[2021-03-30] MEDS ORDERED: ONDANSETRON 4 MG/2 ML VIAL ONE (11:53)
[2021-03-30] MEDS ORDERED: HYDROmorphone 1 MG/ML CARPUJECT ONE (12:02)
[2021-03-30 12:47] VITALS: BP 118/78
--- NOTE | 2021-03-30 16:40 | ANESTHESIA POST OP EVALUATION ---
Anesthesia Post Eval - Post Anesthesia Eval Vitals: Last Vital Signs Temp 35.8 C L 03/30/21 12:35 Pulse 58 L 03/30/21 12:35 Resp 16 03/30/21 12:35 BP 118/78 03/30/21 12:35 Pulse Ox 98 03/30/21 12:35 CV Function Including HR & BP: Stable Pain Control: Satisfactory Nausea & Vomiting: Negative Mental Status: Baseline Respiratory Status: Airway Patent Hydration Status: Satisfactory Anesthesia Complications: None
== END 2021-03-30 08:40 | disposition home or self-care (01) ==
LOC: SDS 08:39
PROVIDERS: ATTEND Surgery
DX: K42.0 Umbilical hernia with obstruction, without gangrene (principal); G47.30 Sleep apnea, unspecified; M06.9 Rheumatoid arthritis, unspecified; Z79.899 Other long term (current) drug therapy; G43.909 Migraine, unspecified, not intractable, without status migrainosus; G89.29 Other chronic pain; M54.9 Dorsalgia, unspecified
CPT/HCPCS: 49587; C1781; J0690; J1170; J3490; J7120

== ENCOUNTER 2021-06-06 20:44 | Emergency (ER) | payer OTHER ==
--- NOTE | 2021-06-06 21:01 | ED Physician Documentation ---
PD HPI ABD PAIN - Stated complaint Stated Complaint: CP, ABD PX - Chief complaint Chief Complaint: Abd Pain - Additional information Additional information: Is a 30-year-old female presenting to the emergency department with report of chest and epigastric abdominal pain. Reports has had intermittent symptoms ongoing for greater than 1 week. Reports a burning sensation in the back of her throat but denies any belching. He denies any association with food. 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 Past medical significant for status post cholecystectomy, appendectomy. Denies any history smoking, CAD, travel, blood clots, estrogen containing medications. Review of Systems Ten Systems: 10 systems reviewed and negative Constitutional: denies: Fever, Chills Eyes: denies: Loss of vision Ears: denies: Loss of hearing Nose: denies: Rhinorrhea / runny nose Throat: denies: Dental pain / toothache Cardiac: reports: Chest pain / pressure Respiratory: denies: Dyspnea GI: reports: Abdominal Pain. denies: Abdominal Swelling, Nausea, Vomiting, Con stipation, Diarrhea, Hematemesis, Bloody / black stool, Reviewed and negative, Other : denies: Dysuria, Frequency, Hesitancy Skin: denies: Rash Musculoskeletal: denies: Neck pain, Back pain PD PAST MEDICAL HISTORY - Past Medical History Cardiovascular: None Respiratory: Sleep apnea Neuro: Headaches, Migraines Endocrine/Autoimmune: None GI: Other : None HEENT: None Psych: Anxiety, Panic attacks, ADD/ADHD, Post traumatic stress disorder Musculoskeletal: Chronic back pain Derm: Other - Past Surgical History Past Surgical History: Yes General: Cholecystectomy, Appendectomy, Colonoscopy Ortho: 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, Other HEENT: Rhinoplasty, Tonsil/Adenoidectomy - Present Medications Home Medications: Ambulatory Orders Medication Instructions Recorded Confirmed Dextroamphetamine/Amphetamine 20 mg PO DAILY PRN 11/26/19 03/30/21 [Adderall Xr 10 mg Capsule] Estradiol [Estrace] 0.5 mg PO DAILY 03/23/21 03/30/21 Onabotulinumtoxina [Botox] 150 unit IJ ONCE 03/23/21 03/23/21 Docusate Sodium 100Mg Capsule 200 mg PO DAILY #20 cap 03/30/21 [Colace 100Mg Capsule] Ondansetron Odt [Zofran Odt] 4 mg TL Q6H PRN #10 tablet 03/30/21 oxyCODONE [Roxicodone] 5 mg PO Q4-6H PRN #20 tablet 03/30/21 Omeprazole 40 mg PO DAILY #30 cap 06/06/21 Sucralfate [Carafate] 1 gm PO DAILY #30 ml 06/06/21 - Allergies Allergies/Adverse Reactions: Allergies Allergy/AdvReac Type Severity Reaction Status Date / Time No Known Drug Allergies Allergy Verified 06/06/21 20:52 - Social History Does the pt smoke?: No Smoking Status: Never smoker Does the pt drink ETOH?: Yes Does the pt have substance abuse?: No - Immunizations Immunizations are current?: Yes - POLST Patient has POLST: No PD ED PE NORMAL - Vitals Vital signs reviewed: Yes (Within normal limits) - General General: Alert and oriented X 3, No acute distress - HEENT HEENT: Atraumatic, PERRL, EOMI, Ears normal - Neck Neck: Supple, no meningeal sign, No bony TTP - Cardiac Cardiac: RRR, No murmur, No gallop, No rub, Strong equal pulses - Respiratory Respiratory: No respiratory distress, Clear bilaterally - Abdomen Abdomen: Normal bowel sounds, Soft, Non tender, Non distended - Female Female : Deferred - Rectal Rectal: Deferred - Extremities Extremities: No deformity - Neuro Neuro: Alert and oriented X 3, food production manager 2-12 intact, No motor deficit, No sensory deficit - Psych Psych: Normal mood Results - Vitals Vitals: Vital Signs - 24 hr 06/06/21 06/06/21 20:45 23:30 Temperature 36.3 C L Heart Rate 82 76 Respiratory 16 16 Rate Blood Pressure 130/83 H 117/76 O2 Saturation 100 99 Oxygen O2 Source Room air - EKG (time done) 1218 Other comments: Other comments (Sinus rhythm with rate 83 bpm. Normal axis. Normal NM, QRS, QTc intervals. No ST segment elevations or T wave inversions.) - Labs Labs: Laboratory Tests 06/06/21 06/06/21 06/06/21 20:57 21:02 21:02 WBC 10.2 RBC 4.43 Hgb 13.5 Hct 39.4 MCV 88.9 MCH 30.5 MCHC 34.3 RDW 13.3 Plt Count 209 MPV 10.2 Neut # (Auto) 7.0 H Lymph # (Auto) 2.4 [place] # (Auto) 0.8 Eos # (Auto) 0.1 Baso # (Auto) 0.1 Absolute Nucleated RBC 0.00 Nucleated RBC % 0.0 Sodium 139 Potassium 3.7 Chloride 104 Carbon Dioxide 26 Anion Gap 9.0 BUN 13 Creatinine 0.9 Estimated GFR (MDRD) 74 L Glucose 91 Calcium 8.9 Total Bilirubin 1.1 H AST 19 ALT 14 Alkaline Phosphatase 57 Troponin I High Sens Total Protein 6.5 L Albumin 4.0 Globulin 2.5 Albumin/Globulin Ratio 1.6 Lipase 34 Urine Color Urine Clarity Urine pH Ur Specific [place] Urine Protein Urine Glucose (UA) Urine Ketones Urine Occult Blood Urine Nitrite Urine Bilirubin Urine Urobilinogen Ur Leukocyte Esterase Ur Microscopic Review Urine Culture Comments Urine HCG, Qual NEGATIVE 06/06/21 06/06/21 21:07 22:12 WBC RBC Hgb Hct MCV MCH MCHC RDW Plt Count MPV Neut # (Auto) Lymph # (Auto) [place] # (Auto) Eos # (Auto) Baso # (Auto) Absolute Nucleated RBC Nucleated RBC % Sodium Potassium Chloride Carbon Dioxide Anion Gap BUN Creatinine Estimated GFR (MDRD) Glucose Calcium Total Bilirubin AST ALT Alkaline Phosphatase Troponin I High Sens < 2.3 L Total Protein Albumin Globulin Albumin/Globulin Ratio Lipase Urine Color YELLOW Urine Clarity CLEAR Urine pH 5.5 Ur Specific [place] >=1.030 H Urine Protein NEGATIVE Urine Glucose (UA) NEGATIVE Urine Ketones NEGATIVE Urine Occult Blood NEGATIVE Urine Nitrite NEGATIVE Urine Bilirubin NEGATIVE Urine Urobilinogen 0.2 (NORMAL) Ur Leukocyte Esterase NEGATIVE Ur Microscopic Review NOT INDICATED Urine Culture Comments NOT INDICATED Urine HCG, Qual PD MEDICAL DECISION MAKING - ED course Complexity details: reviewed results, d/w patient ED course: Patient is 30-year-old female presenting with chest and epigastric pain ongoing x1 week. Afebrile, hemoglobin stable on arrival to the emergency department. EKG is on above negative for indications of acute cardiac ischemia or dysrhythmia. Physical exam was benign, patient did not have any specific epigastric or right upper quadrant tenderness to palpation. She does have a past surgical history positive for cholecystectomy and appendectomy. He does have a known history of anxiety. Minimal risk factors for coronary artery disease and patient is low risk Wells, PERC negative in the emergency department. Did obtain a single high-sensitivity troponin which was negative. Additionally I obtain comprehensive labs with with the exception of a very minimal elevation in bilirubin were all within normal limits are nonactionable. Patient was given a dose of Protonix as well as sucralfate in the emergency department for presumed gastritis versus peptic ulcer disease. Likely exacerbated by the stressors she has experienced in her home and workplace. Will discharge with an ongoing course of the same medications. Her mental health screening exam was negative for any indications of self-harm and she was encouraged to follow-up with both primary care as well as to discuss her life stressors with close family and friends in an effort to cobb more social support. She verbalized understanding and agreement with this plan. I will discharge on an ongoing course of Protonix and supra fate. Otherwise clear return precautions and follow-up instructions were given prior to discharge. Departure - Departure Disposition: Home, Self Care Clinical Impression: Chest pain, Epigastric pain, Anxiety Condition: Good Instructions: ED Stress React, ED Chest Pain NonCardiac, ED PUD Vs Gastritis Prescriptions: Sucralfate [Carafate] 1 gm PO DAILY #30 ml Omeprazole 40 mg PO DAILY #30 cap Comments: Thank you for allowing us to care for you today at [facility]. Your prescriptions were sent electronically to [facility]. Your EKG, blood work were all very reassuring. I would like you to start some oral antiacid medications. If possible I also recommend speaking with a trusted friend or family member about some of the other life stressors you have been under. Please do make a follow-up appoint with your primary care doctor however and endeavor to stay well-hydrated over the course of the next few days. If it anytime you have any new or worsening symptoms please not hesitate to return to the emergency department. Discharge Date/Time: 06/06/21 23:32
[2021-06-06 21:06] LABS: BASOPHILS # (AUTO) 0.1 10^3/uL (0.0-0.1); BASOPHILS % (AUTO) 0.5 %; EOSINOPHILS # (AUTO) 0.1 10^3/uL (0.0-0.7); EOSINOPHILS % (AUTO) 0.5 %; HCT - HEMATOCRIT 39.4 % (37.0-47.0); HGB - HEMOGLOBIN 13.5 g/dL (12.0-16.0); LYMPHOCYTES # (AUTO) 2.4 10^3/uL (1.5-3.5); LYMPHOCYTES % (AUTO) 22.9 %; MEAN CORPUSCULAR HEMOGLOBIN 30.5 pg (27.0-31.0); MEAN CORPUSCULAR HGB CONC 34.3 g/dL (32.0-36.0); MEAN CORPUSCULAR VOLUME 88.9 fL (81.0-99.0); MEAN PLATELET VOLUME 10.2 fL (7.9-10.8); MONOCYTES # (AUTO) 0.8 10^3/uL (0.0-1.0); MONOCYTES % (AUTO) 7.7 %; NEUTROPHILS % (AUTO) 68.1 %; PLT - PLATELET COUNT 209 10^3/uL (130-450); RED BLOOD COUNT 4.43 10^6/uL (4.20-5.40); RED CELL DISTRIBUTION WIDTH 13.3 % (12.0-15.0); WHITE BLOOD COUNT 10.2 x10^3/uL (4.8-10.8)
[2021-06-06 21:11] LABS: BILIRUBIN,URINE NEGATIVE (NEGATIVE); GLUCOSE, URINE (UA) NEGATIVE (NEGATIVE); KETONES,URINE (UA) NEGATIVE (NEGATIVE); LEUKOCYTE ESTERASE, URINE NEGATIVE (NEGATIVE); NITRITE,URINE NEGATIVE (NEGATIVE); OCCULT BLOOD,URINE NEGATIVE (NEGATIVE); PH,URINE 5.5 PH (5.0-7.5); PROTEIN,URINE NEGATIVE (NEGATIVE); UROBILINOGEN,URINE 0.2 (NORMAL) E.U./dL (NORMAL)
[2021-06-06 21:12] LABS: CLARITY,URINE CLEAR (CLEAR)
[2021-06-06 21:18] LABS: ALBUMIN/GLOBULIN RATIO 1.6 (1.0-2.2); BILIRUBIN,TOTAL 1.1 mg/dL (0.2-1.0); CALCIUM 8.9 mg/dL (8.5-10.3); CREATININE 0.9 mg/dL (0.4-1.0); POTASSIUM 3.7 mmol/L (3.5-5.0); TOTAL PROTEIN 6.5 g/dL (6.7-8.2)
[2021-06-06] MEDS ORDERED: MAG HYDROX/AL HYDROX/SIMETH 30 ML UDC PO STA (21:58)
[2021-06-06] MEDS ORDERED: PANTOPRAZOLE 40 MG VIAL IVP STA (23:22)
[2021-06-06] MEDS ORDERED: SUCRALFATE 1 GM/10 ML UDC PO STA (23:22)
[2021-06-06 23:24] LABS: HCG UR QUAL NEGATIVE
[2021-06-06 23:32] VITALS: BP 117/76
== END 2021-06-06 23:32 | disposition home or self-care (01) ==
LOC: ED 20:44
DX: R07.9 Chest pain, unspecified (principal); R10.13 Epigastric pain; F41.9 Anxiety disorder, unspecified
CPT/HCPCS: 36415; 80053; 81003; 81025; 83690; 84484; 85025; 93005; 99283; 99284; A9270; 81001; 87086

== ENCOUNTER 2021-09-29 22:36 | Emergency (ER) | payer MEDICAID, OTHER ==
[2021-09-29 23:14] LABS: BILIRUBIN,URINE NEGATIVE (NEGATIVE); GLUCOSE, URINE (UA) NEGATIVE (NEGATIVE); KETONES,URINE (UA) NEGATIVE (NEGATIVE); LEUKOCYTE ESTERASE, URINE NEGATIVE (NEGATIVE); NITRITE,URINE NEGATIVE (NEGATIVE); OCCULT BLOOD,URINE NEGATIVE (NEGATIVE); PH,URINE 5.5 PH (5.0-7.5); PROTEIN,URINE NEGATIVE (NEGATIVE); UROBILINOGEN,URINE 0.2 (NORMAL) E.U./dL (NORMAL)
[2021-09-29 23:17] LABS: CLARITY,URINE CLEAR (CLEAR)
[2021-09-29 23:18] LABS: HCG UR QUAL NEGATIVE
[2021-09-29 23:26] LABS: ALBUMIN 4.5 g/dL (3.2-5.5); ALBUMIN/GLOBULIN RATIO 1.6 (1.0-2.2); BILIRUBIN,TOTAL 0.3 mg/dL (0.2-1.0); CALCIUM 9.1 mg/dL (8.5-10.3); CREATININE 1.1 mg/dL (0.4-1.0); POTASSIUM 3.5 mmol/L (3.5-5.0); TOTAL PROTEIN 7.4 g/dL (6.7-8.2)
[2021-09-30] LABS: BASOPHILS % (AUTO) 0.3 %; EOSINOPHILS # (AUTO) 0.1 10^3/uL (0.0-0.7); EOSINOPHILS % (AUTO) 0.5 %; HCT - HEMATOCRIT 43.5 % (37.0-47.0); LYMPHOCYTES # (AUTO) 3.6 10^3/uL (1.5-3.5); LYMPHOCYTES % (AUTO) 27.8 %; MEAN CORPUSCULAR HEMOGLOBIN 31.6 pg (27.0-31.0); MEAN CORPUSCULAR HGB CONC 34.5 g/dL (32.0-36.0); MEAN CORPUSCULAR VOLUME 91.6 fL (81.0-99.0); MEAN PLATELET VOLUME 9.7 fL (7.9-10.8); MONOCYTES # (AUTO) 0.7 10^3/uL (0.0-1.0); MONOCYTES % (AUTO) 5.6 %; NEUTROPHILS # (AUTO) 8.5 10^3/uL (1.5-6.6); NEUTROPHILS % (AUTO) 65.4 %; PLT - PLATELET COUNT 237 10^3/uL (130-450); RED BLOOD COUNT 4.75 10^6/uL (4.20-5.40); RED CELL DISTRIBUTION WIDTH 12.8 % (12.0-15.0); WHITE BLOOD COUNT 12.9 x10^3/uL (4.8-10.8)
[2021-09-30] MEDS ORDERED: DEXAMETHASONE 10 MG/ML VIAL IVP STA (00:03)
[2021-09-30] MEDS ORDERED: KETOROLAC 30 MG/ML VIAL IVP STA (00:03)
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
[2021-09-30 04:15] VITALS: BP 118/76
== END 2021-09-30 04:16 | disposition home or self-care (01) ==
LOC: ED 22:36
DX: F43.9 Reaction to severe stress, unspecified (principal); M94.0 Chondrocostal junction syndrome [Tietze]; R30.0 Dysuria; Z13.9 Encounter for screening, unspecified; Z13.220 Encounter for screening for lipoid disorders; Z13.1 Encounter for screening for diabetes mellitus; Z13.29 Encounter for screening for other suspected endocrine disorder; Z20.2 Contact with and (suspected) exposure to infections with a predominantly sexual mode of transmission
CPT/HCPCS: 36415; 80053; 80061; 81001; 81003; 81025; 81599; 82306; 83036; 83690; 83721; 84443; 84484; 85025; 86592; 86695; 86696; 87086; 87389; 87491; 87591; 87661; 93005; 96374; 96375; 99284

== ENCOUNTER 2021-09-30 11:30 | Outpatient (CLI) | payer MEDICAID ==
[2021-09-30 18:28] LABS: BASOPHILS % (AUTO) 0.2 %; HCT - HEMATOCRIT 44.3 % (37.0-47.0); LYMPHOCYTES # (AUTO) 0.8 10^3/uL (1.5-3.5); LYMPHOCYTES % (AUTO) 6.6 %; MEAN CORPUSCULAR HGB CONC 33.9 g/dL (32.0-36.0); MEAN CORPUSCULAR VOLUME 91.5 fL (81.0-99.0); MONOCYTES # (AUTO) 0.2 10^3/uL (0.0-1.0); MONOCYTES % (AUTO) 2.1 %; NEUTROPHILS # (AUTO) 10.4 10^3/uL (1.5-6.6); NEUTROPHILS % (AUTO) 90.6 %; PLT - PLATELET COUNT 227 10^3/uL (130-450); RED BLOOD COUNT 4.84 10^6/uL (4.20-5.40); RED CELL DISTRIBUTION WIDTH 12.8 % (12.0-15.0); WHITE BLOOD COUNT 11.5 x10^3/uL (4.8-10.8)
[2021-09-30 18:46] LABS: ALBUMIN 4.7 g/dL (3.2-5.5); ALBUMIN/GLOBULIN RATIO 1.7 (1.0-2.2); ALKALINE PHOSPHATASE 59 IU/L (42-121); ALT ALANINE AMINOTRANSFERASE 16 IU/L (10-60); AST ASPARTATE AMINOTRANSFERASE 19 IU/L (10-42); BILIRUBIN,TOTAL 0.8 mg/dL (0.2-1.0); BUN - BLOOD UREA NITROGEN 15 mg/dL (6-20); CALCIUM 9.8 mg/dL (8.5-10.3); CARBON DIOXIDE - CO2 26 mmol/L (21-32); CHLORIDE 106 mmol/L (101-111); CHOL/HDL RATIO 2.2 (<4.4); CHOLESTEROL 184 mg/dL; CREATININE 0.9 mg/dL (0.4-1.0); GFR - MDRD 74 (>89); GLUCOSE 132 mg/dL (70-100); HDL CHOLESTEROL 82 mg/dL; LDL CHOLESTEROL,CALCULATED 92 mg/dL; LDL/HDL RATIO 1.1 (<4.4); POTASSIUM 4.1 mmol/L (3.5-5.0); SODIUM 142 mmol/L (135-145); TOTAL PROTEIN 7.5 g/dL (6.7-8.2); TRIGLYCERIDES 52 mg/dL; VLDL CHOLESTEROL 10 mg/dL
[2021-09-30 18:53] LABS: THYROID STIMULATING HORMONE 0.63 uIU/mL (0.34-5.60)
[2021-10-01 03:22] LABS: CHLAMYDIA TRACHOMATIS DNA NEGATIVE (NEGATIVE); NEISSERIA GONORRHOEAE DNA NEGATIVE (NEGATIVE); TRICHOMONAS VAGINALIS DNA NEGATIVE (NEGATIVE)
[2021-10-01 13:11] LABS: HIV AG/AB 4TH GEN NON-REACTIVE (NON-REACTIVE)
[2021-10-02 13:21] LABS: HSV 1 IGG TYPE SPECIFIC AB <0.90 index; HSV 2 IGG TYPE SPECIFIC AB <0.90 index
== END 2021-09-30 11:31 | disposition home or self-care (01) ==
LOC: LAB.N 11:30
PROVIDERS: ATTEND Physician Assistant
DX: R30.0 Dysuria (principal); Z13.9 Encounter for screening, unspecified; Z13.220 Encounter for screening for lipoid disorders; Z13.1 Encounter for screening for diabetes mellitus; Z13.29 Encounter for screening for other suspected endocrine disorder; Z20.2 Contact with and (suspected) exposure to infections with a predominantly sexual mode of transmission
CPT/HCPCS: 36415; 80053; 80061; 81599; 82306; 83036; 83721; 84443; 85025; 86592; 86695; 86696; 87389; 87491; 87591; 87661

== ENCOUNTER 2021-10-07 09:30 | Outpatient (CLI) | payer MEDICAID ==
[2021-10-07 19:04] LABS: BILIRUBIN,URINE NEGATIVE (NEGATIVE); GLUCOSE, URINE (UA) NEGATIVE (NEGATIVE); KETONES,URINE (UA) NEGATIVE (NEGATIVE); LEUKOCYTE ESTERASE, URINE NEGATIVE (NEGATIVE); NITRITE,URINE NEGATIVE (NEGATIVE); OCCULT BLOOD,URINE NEGATIVE (NEGATIVE); PROTEIN,URINE NEGATIVE (NEGATIVE); UROBILINOGEN,URINE 0.2 (NORMAL) E.U./dL (NORMAL)
[2021-10-07 19:08] LABS: CLARITY,URINE HAZY (CLEAR)
[2021-10-07 19:14] LABS: AMORPHOUS SEDIMENT,UR Moderate /LPF; BACTERIA,URINE Moderate /HPF (None Seen); RBC,URINE None Seen /HPF (0-5); SQUAMOUS EPITHELIAL CELL,UR FEW Squamous (<= Few); WBC,URINE 0-3 /HPF (0-5)
== END 2021-10-07 23:59 | disposition home or self-care (01) ==
LOC: LAB 09:30
PROVIDERS: ATTEND Physician Assistant
DX: R30.0 Dysuria (principal)
CPT/HCPCS: 81001; 87086; 87181

== ENCOUNTER 2021-10-31 19:56 | Emergency (ER) | payer MEDICAID ==
[2021-10-31 20:06] VITALS: BP 134/63
[2021-10-31] MEDS ORDERED: ACETAMINOPHEN 500 MG TABLET PO STA (20:22)
[2021-10-31] MEDS ORDERED: AMOX/CLAV 875 MG/125 MG TABLET PO STA (20:23)
[2021-10-31] MEDS ORDERED: PSEUDOEPHEDRINE 30 MG TABLET PO STA (20:25)
--- NOTE | 2021-10-31 20:33 | ED Physician Documentation ---
PD HPI HEENT - Stated complaint Stated Complaint: EAR PX,JAW & NECK PX - Chief complaint Chief Complaint: Heent - History obtained from History obtained from: Patient - Additional information Additional information: Patient is a 31-year-old female with history of PTSD and anxiety presenting for evaluation of bilateral ear pain left greater than rightSince .She reports the pain as pressure.She denies barotrauma or abnormal discharge from the ears. She has been using Motrin without improvement. Nothing makes her pain better. She denies sick contacts. No fever, Cough, sore throat or dental pain. No chest pain or difficulty breathing. Review of Systems Constitutional: denies: Fever Ears: reports: Ear pain. 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 : None HEENT: None Psych: Anxiety, Panic attacks, ADD/ADHD, Post traumatic stress disorder Musculoskeletal: Chronic back pain Derm: Other - Past Surgical History Past Surgical History: Yes General: Cholecystectomy, Appendectomy, Colonoscopy Ortho: 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: 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, Other HEENT: Rhinoplasty, Tonsil/Adenoidectomy - Present Medications Home Medications: Ambulatory Orders Medication Instructions Recorded Confirmed traZODone [Desyrel] 50 mg PO HS #30 tablet 09/30/21 Amox/Clav 875/125 [Augmentin] 1 each PO Q12H #20 tablet 10/31/21 - Allergies Allergies/Adverse Reactions: Allergies Allergy/AdvReac Type Severity Reaction Status Date / Time No Known Drug Allergies Allergy Verified 10/31/21 20:06 - Social History Does the pt smoke?: No Smoking Status: Never smoker Does the pt drink ETOH?: Yes Does the pt have substance abuse?: No - Immunizations Immunizations are current?: Yes - POLST Patient has POLST: No PD ED PE NORMAL - General General: Alert and oriented X 3, No acute distress, Well developed/nourished - HEENT HEENT: Atraumatic, Moist mucous membranes, Pharynx benign, Other (No mastoid tenderness bilaterally). No: Ears normal - Neck Neck: Supple, no meningeal sign, No bony TTP, Other (Mild left preauricular lymphadenopathy). No: No adenopathy - Cardiac Cardiac: RRR, No murmur, Strong equal pulses - Respiratory Respiratory: No respiratory distress, Clear bilaterally - Derm Derm: No rash - Extremities Extremities: No edema - Neuro Neuro: Normal speech - Psych Psych: Normal mood PD ED PE EXPANDED - HEENT HEENT: Atraumatic, L TM red, L TM dull, L TM bulging, L TM retracted, Pharynx normal. No: R TM red, R TM dull Results - Vitals Vitals: Vital Signs - 24 hr 10/31/21 19:59 Temperature 36.5 C Heart Rate 90 Respiratory 22 Rate Blood Pressure 134/63 H O2 Saturation 99 Oxygen O2 Source Room air PD MEDICAL DECISION MAKING - ED course Complexity details: d/w patient ED course: Patient with bilateral ear pain, left greater than right. On evaluation, both TMs are intact. Exam of left TM highly concerning for infection. Believe antibiotics are appropriate in this case. Will start on Augmentin.Patient is aware of return precautions and counseled on plan of care. Departure - Departure Disposition: 01 Home, Self Care Clinical Impression: Left otitis media Qualifiers: Otitis media type: unspecified Qualified Code(s): H66.92 - Otitis media, unspecified, left ear Condition: Stable Instructions: ED Otitis Media Acute Adult Prescriptions: Amox/Clav 875/125 [Augmentin] 1 each PO Q12H #20 tablet Comments: Amadou - You have been evaluated for ear pain and found to have an ear infection. I have prescribed Augmentin and you have received the first dose tonight. The prescriptions will be sent to the [facility] pharmacy in [place]. Please use Motrin or Tylenol For pain. You can also try a decongestant like Sudafed To help with the pressure sensation. Please complete the full course of antibiotics even though you should note improvement within the first few days of taking it. If you have any worsening symptoms such as abnormal drainage from the ear, fever, trouble swallowing, trouble breathing or have other concerns please return to the emergency department. Discharge Date/Time: 10/31/21 20:53
== END 2021-10-31 20:53 | disposition home or self-care (01) ==
LOC: ED 19:56
DX: H66.92 Otitis media, unspecified, left ear (principal)
CPT/HCPCS: 99282; A9270